=== PATIENT | female | born 1955 | race Caucasian/White ===

== ENCOUNTER 2018-08-15 09:15 | Inpatient (IN) | payer SELFPAY ==
[2018-08-15] VITALS (15 sets, daily range): BP systolic 129–182; BP diastolic 60–127; PULSE 67–105; RESP 12–28; TEMP 36.4–36.9; O2SAT 83–94; BMI 42.9
--- NOTE | 2018-08-15 09:24 | DI.RAD.S_ITS ---
PROCEDURE: XR CHEST 2V INDICATIONS: SHORT OF BREATH TECHNIQUE: 2 views of the chest were acquired. COMPARISON: None. FINDINGS: Surgical changes and devices: None. Lungs and pleura: There is bilateral pulmonary vascular prominence with a basilar predominance compatible with pulmonary edema. No pleural effusions or pneumothorax. Mediastinum: Mediastinal contours are normal. Heart size is normal. Bones and chest wall: No suspicious bony abnormalities. Soft tissues appear unremarkable. IMPRESSION: 1. Pulmonary edema demonstrated which may be due to cardiogenic or noncardiogenic etiologies such as atypical infection. Dictated by: Ignacio Garvey M.D. on 08/15/2018 at 10:40 Approved by: Ignacio Garvey M.D. on 08/15/2018 at 10:41
[2018-08-15 09:43] LABS: Add Manual Diff / Slide Review NO; Basophils Absolute Auto 100 /uL (0-100); Basophils Percent Auto 0.7 % (0-2); Eosinophils Absolute Auto 200 /uL (0-450); Eosinophils Percent Auto 1.5 % (2-4); Hematocrit 46.6 % (36-46); Hemoglobin 15.3 g/dL (12.0-16.0); Lymphocytes Absolute Auto 1100 /uL (1100-4500); Lymphocytes Percent Auto 10.8 % (25-40); Mean Corpuscular HGB Conc 32.9 % (30-36); Mean Corpuscular Hemoglobin 28.9 PG (26-34); Mean Corpuscular Volume 87.7 fL (80-100); Monocytes Absolute Auto 1100 /uL (0-900); Monocytes Percent Auto 10.1 % (3-14); Neutrophils Absolute Auto 8000 /uL (1500-7000); Neutrophils Percent Auto 76.9 % (50-75); Platelet Count 434 X10^3/uL (150-400); Red Blood Cell Count 5.31 X10^6/uL (4.0-5.2); Red Cell Distribution Width 14.3 % (11.6-14.8); White Blood Cell Count 10.5 X10^3/uL (4.5-11.0)
[2018-08-15] MEDS: ALBUTEROL 2.5 MG/3 ML NEB (ADULT) INH (09:47)
[2018-08-15 09:57] LABS: BUN Creatinine Ratio 22.9 (6-22); Blood Urea Nitrogen 16 mg/dL (7-17); Calcium 8.6 mg/dL (8.4-10.2); Carbon Dioxide 31 mmol/L (22-32); Chloride 103 mmol/L (98-107); Creatine Kinase 119 U/L (30-135); Estimated Glomerular Filt Rate > 60.0 mL/min (>60); Glucose 103 mg/dL (80-110); HEMOLYSIS < 15 (0-50); Magnesium 2.2 mg/dL (1.6-2.3); Potassium 4.7 mmol/L (3.4-5.1); Sodium 141 mmol/L (137-145)
[2018-08-15 09:58] LABS: Lactate (Lactic Acid) 0.8 mmol/L (0.7-2.1)
--- NOTE | 2018-08-15 09:58 | ED_ITS ---
HPI - SOB/Dyspnea General Chief Complaint: Shortness of Breath/Dyspnea Stated Complaint: CONFUSION,FUZZY INSIDE Time Seen by Provider: 08/15/18 09:45 Source: patient and family Mode of arrival: wheelchair Limitations: no limitations History of Present Illness This is a 63-year-old female who comes to the emergency department with complaint of shortness of breath. Her states she has also had a little bit of confusion. They states she has had symptoms for at least 10 days. She came in today because she was continuing to feel short of breath. She has not been improving. Her states her confusion has improved. Patient has history of COPD she does not have any inhalers at home and has not been using any. She did use to use Spiriva daily but quit using it about 2 years ago. She does tape daily. Patient has not had any fevers, no chills. She has had cough which has been productive with clear sputum which she states has not changed. She states it is normally a wet cough. She denies any chest pain or pressure. She states that when we placed on oxygen here in the department she felt a lot better. She denies any nausea or vomiting no other GI or urinary symptoms. She is not on any other medications regularly. Her states that she Has not seen a primary care physician in at least a decade. She has had a hysterectomy in the past. She does not drink alcohol. Related Data Home Medications Medication Instructions Recorded Confirmed No Known Home Medications 08/15/18 08/15/18 Allergies Allergy/AdvReac Type Severity Reaction Status Date / Time No Known Drug Allergies Allergy Verified 08/15/18 09:21 Review of Systems Review of Systems ROS Unobtainable: All systems reviewed & are unremarkable except as noted in HPI and below Constitutional Reports body ache(s), Denies chills, Denies difficulty sleeping, Denies excessive sweating, Denies fever(s), Denies headache(s), Denies lethargy and Denies weakness Eyes Denies change in vision ENT Ears, Nose, Mouth, and Throat: Denies vertigo, Denies headache(s) and Denies other ( Facial droop) Cardiovascular Denies chest pain, Denies chest pain at rest, Denies syncope, Denies irregular heart rhythm, Denies leg edema, Denies lightheadedness, Denies radiating jaw, neck or arm pain, Denies palpitations, Reports dyspnea, Reports dyspnea on exertion and Denies orthopnea Respiratory Denies change in phlegm color, Reports cough ( chronic), Denies pain on inspiration, Denies pain with cough, Reports dyspnea and Reports dyspnea on exertion Gastrointestinal Gastrointestinal: Denies abdominal pain, Denies melena, Denies hematochezia, Denies change in bowel habits, Denies diarrhea, Denies nausea and Denies vomiting Genitourinary Denies hematuria, Denies urinary frequency, Denies dysuria, Denies flank pain and Denies urinary urgency Musculoskeletal Denies muscle weakness and Denies numbness Neurologic Reports confusion, Denies vertigo, Denies syncope, Denies headache(s), Denies focal weakness, Denies numbness, Denies sensory deficit and Denies weakness Psychiatric Reports confusion Endocrine Denies excessive sweating and Denies palpitations PFSH Medical History COPD (chronic obstructive pulmonary disease) (Acute) H/O: hysterectomy (Acute) Social History household members: spouse Smoking Status: Former smoker alcohol intake: current Social History household members: spouse Smoking Status: Former smoker alcohol intake: current Exam Narrative Exam Narrative: GENERAL: Alert and oriented x three, obese, well-appearing female in moderate distress. HEENT: Head normocephalic, atraumatic, EOMI, pupils reactive, face symmetric, moist mucous membranes NECK: Supple, full range of motion CARDIOVASCULAR: Regular rate and rhythm without murmurs, rubs or gallops. RESPIRATORY: Breath decreased but audible bilaterally, mild wheezes in the left base greater than the right, no crackles rales or rhonchi. Positive for t achypnea. Able to speak in full sentences. ABDOMEN: Soft, nontender. Normoactive bowel sounds all 4 quadrants. No guarding or rebound, rigidity, no mass : No CVA tenderness EXTREMITIES: Normal range of motion, no clubbing. Trace edema. Neurovascularly intact NEUROLOGICAL: Cranial nerves II through XII grossly intact. Moving all extremities SKIN: Warm, dry, no petechiae, no rashes or lesions. Initial Vital Signs Initial Vital Signs: Vital Signs Temperature 97.6 F 08/15/18 09:21 Pulse Rate 90 08/15/18 09:21 Respiratory Rate 28 H 08/15/18 09:21 Blood Pressure 182/127 H 08/15/18 09:21 Pulse Oximetry 83 L 08/15/18 09:21 Course Orders Ordered: ED Orders 08/15/18 11:45 Respiratory Panel (Film Array) Stat 08/15/18 12:10 Sputum Culture Stat Albuterol/Ipratropium (Duoneb) 3 ml INH RTQ4HR PRN PRN Reason: Shortness Of Breath Sodium Chloride (Normal Saline 0.9%) 1,000 mls @ 125 mls/hr IV CONT MARY Last Admin: 08/15/18 12:05 Dose: 125 mls/hr Discontinued Medications Albuterol (Ventolin) 2.5 mg INH NOW ONE Stop: 08/15/18 09:46 Last Admin: 08/15/18 09:47 Dose: 2.5 mg Albuterol/Ipratropium (Duoneb) 3 ml INH NOW ONE Stop: 08/15/18 11:34 Last Admin: 08/15/18 13:23 Dose: 3 ml Azithromycin 500 mg/ Dextrose 250 mls @ 250 mls/hr IV NOW ONE Stop: 08/15/18 11:46 Last Infusion: 08/15/18 13:27 Dose: 0 mls/hr Admin: 08/15/18 12:05 Dose: 250 mls/hr Influenza Virus Vaccine (Flu Vaccine) 0.5 ml IM .ONCE ONE Stop: 08/15/18 15:13 Last Admin: 08/15/18 18:47 Dose: Not Given Methylprednisolone (Solu-Medrol 125 Mg Vial) 125 mg IV NOW ONE Stop: 08/15/18 10:06 Last Admin: 08/15/18 10:11 Dose: 125 mg Vital Signs - 8 hr 08/15/18 12:30 08/15/18 13:00 08/15/18 13:23 Temperature Pulse Rate 86 105 H 96 H Respiratory Rate 12 Blood Pressure Blood Pressure [Right Arm] 154/72 H 132/62 Pulse Oximetry 91 93 08/15/18 13:32 08/15/18 14:37 08/15/18 14:45 Temperature 97.8 F Pulse Rate 94 H 92 H 100 H Respiratory Rate 25 H 22 20 Blood Pressure 174/93 H Blood Pressure [Right Arm] 136/62 140/60 Pulse Oximetry 91 90 L 93 08/15/18 15:31 Temperature Pulse Rate Respiratory Rate Blood Pressure Blood Pressure [Right Arm] Pulse Oximetry 94 MDM - SOB/Dyspnea Lab Data Attestation: I reviewed the patient's lab results. Result diagrams: 08/15/18 09:30 08/15/18 09:30 Lab Results 08/15/18 08/15/18 08/15/18 Range/Units 09:30 09:30 09:30 WBC 10.5 (4.5-11.0) X10^3/uL RBC 5.31 H (4.0-5.2) X10^6/uL Hgb 15.3 (12.0-16.0) g/dL Hct 46.6 H (36-46) % MCV 87.7 (80-100) fL MCH 28.9 (26-34) PG MCHC 32.9 (30-36) % RDW 14.3 (11.6-14.8) % Plt Count 434 H (150-400) X10^3/uL Neut % (Auto) 76.9 H (50-75) % Lymph % (Auto) 10.8 L (25-40) % [place] % (Auto) 10.1 (3-14) % Eos % (Auto) 1.5 L (2-4) % Baso % (Auto) 0.7 (0-2) % Neut # (Auto) 8000 H (7491-8767) /uL Lymph # (Auto) 1100 (6788-9637) /uL [place] # (Auto) 1100 H (0-900) /uL Eos # (Auto) 200 (0-450) /uL Baso # (Auto) 100 (0-100) /uL Sodium 141 (137-145) mmol/L Potassium 4.7 (3.4-5.1) mmol/L Chloride 103 (98-107) mmol/L Carbon Dioxide 31 (22-32) mmol/L BUN 16 (7-17) mg/dL Creatinine 0.70 (0.52-1.04) mg/dL Estimated GFR > 60.0 (>60) mL/min BUN/Creatinine Ratio 22.9 H (6-22) Glucose 103 (80-110) mg/dL Lactate (0.7-2.1) mmol/L Calcium 8.6 (8.4-10.2) mg/dL Magnesium 2.2 (1.6-2.3) mg/dL Total Creatine Kinase 119 (30-135) U/L CK-MB (CK-2) 1.90 (<2.37) ng/mL CK-MB (CK-2) Rel Index 1.6 (1.5-5.0) % Troponin I 0.019 (0.01-0.034) ng/mL B-Natriuretic Peptide < 100 (<100) Procalcitonin < 0.05 (<0.5) ng/mL Influenza A & B (PCR) (Negative) 08/15/18 08/15/18 Range/Units 09:30 10:10 WBC (4.5-11.0) X10^3/uL RBC (4.0-5.2) X10^6/uL Hgb (12.0-16.0) g/dL Hct (36-46) % MCV (80-100) fL MCH (26-34) PG MCHC (30-36) % RDW (11.6-14.8) % Plt Count (150-400) X10^3/uL Neut % (Auto) (50-75) % Lymph % (Auto) (25-40) % [place] % (Auto) (3-14) % Eos % (Auto) (2-4) % Baso % (Auto) (0-2) % Neut # (Auto) (0429-4562) /uL Lymph # (Auto) (6210-3095) /uL [place] # (Auto) (0-900) /uL Eos # (Auto) (0-450) /uL Baso # (Auto) (0-100) /uL Sodium (137-145) mmol/L Potassium (3.4-5.1) mmol/L Chloride (98-107) mmol/L Carbon Dioxide (22-32) mmol/L BUN (7-17) mg/dL Creatinine (0.52-1.04) mg/dL Estimated GFR (>60) mL/min BUN/Creatinine Ratio (6-22) Glucose (80-110) mg/dL Lactate 0.8 (0.7-2.1) mmol/L Calcium (8.4-10.2) mg/dL Magnesium (1.6-2.3) mg/dL Total Creatine Kinase (30-135) U/L CK-MB (CK-2) (<2.37) ng/mL CK-MB (CK-2) Rel Index (1.5-5.0) % Troponin I (0.01-0.034) ng/mL B-Natriuretic Peptide (<100) Procalcitonin (<0.5) ng/mL Influenza A & B (PCR) Negative (Negative) Point of Care Testing Glucose POC 237 Imaging Data Chest x-ray: Radiologist's impression: [address] [address] XRay Report Signed Patient: Miryam Masters JMR#: [id number] : [id number]:[id number] Age/Sex: 63 / FDate of Service: 08/15/18 Loc: ED Accession Number: [id number] Procedure: XR chest 2V Ordering Provider: Flores Reeder D.O. PROCEDURE: XR CHEST 2V INDICATIONS: SHORT OF BREATH TECHNIQUE: 2 views of the chest were acquired. COMPARISON: None. FINDINGS: Surgical changes and devices: None. Lungs and pleura: There is bilateral pulmonary vascular prominence with a basilar predominance compatible with pulmonary edema. No pleural effusions or pneumothorax. Mediastinum: Mediastinal contours are normal. Heart size is normal. Bones and chest wall: No suspicious bony abnormalities. Soft tissues appear unremarkable. IMPRESSION: 1. Pulmonary edema demonstrated which may be due to cardiogenic or noncardio genic etiologies such as atypical infection. Dictated by: Ignacio Garvey M.D. on 08/15/2018 at 10:40 Approved by: Ignacio Garvey M.D. on 08/15/2018 at 10:41 CTA chest: Radiologist's impression: [address] Reeder, DO [facility] Patient Imaging Miryam Masters 63 F 1955 ACTIVITY DATE EXAM STATUS AUTHOR 08/15/18 10:51 Signed Areli Osman 08/15/18 09:24 Signed Ignacio Garvey [address] [address] [address] Scan Report Signed Patient: Miryam Masters JMR#: [id number] : 6Acct:[id number] Age/Sex: 63 / FDate of Service: 08/15/18 Loc: ED Accession Number: [id number] Procedure: CT angio chest PE protocol Ordering Provider: Flores Reeder D.O. PROCEDURE: CT ANGIO CHEST PE PROTOCOL INDICATIONS: shortness of breath x 10 days, hx copd, sudden onsent, hypox TECHNIQUE: After the administration of intravenous contrast, 2 mm thick sections acquired from the pulmonary apices to the posterior costophrenic angles. 3-dimensional maximum intensity projection (MIP) coronal and sagittal reformats were then acquired through the thorax. For radiation dose reduction, the following was used: automated exposure control, adjustment of mA and/or kV according to patient size. COMPARISON: [facility], CR, XR CHEST 2V, 08/15/2018, 9:41. FINDINGS: Image quality: Excellent. Pulmonary arteries: Pulmonary arteries are normal in size, and demonstrate no intraluminal filling defects to suggest central pulmonary embolism. Lungs and pleura: There is an appearance of predominantly tree in bud nodularity within the lungs bilaterally. Most significant areas of prominence are noted within the anterior left upper lobe and right middle lobe. Mediastinum: Heart size is normal, without pericardial effusion. Bilateral hilar and mediastinal adenopathy is present with the largest hilar node identified on the left measuring 18 mm. The most prominent mediastinal lymph node is in the aorticopulmonary window measuring 14 mm. Thoracic aorta is normal in caliber and enhancement. Esophagus is normal in caliber, without hiatal hernia. Bones and chest wall: No suspicious bony lesions. Ribs and thoracic spine appear intact throughout. Thyroid gland is unremarkable. No axillary or supraclavicular adenopathy. Abdomen: Visualized upper abdominal solid organs appear normal in the early arterial phase of enhancement. IMPRESSION: 1. No pulmonary embolism. 2. Multiple areas of nodularity appearing tree in bud in appearance with more consolidative left in patchy areas as described above. Overall appearance is most suggestive of an infectious/inflammatory etiology. Atypical infection such as fungal and mycobacterial should be considered. Recommend interval followup to document resolution and exclude presence of underlying noninfectious/noninflammatory, potentially neoplastic mass. Dictated by: Areli Osman M.D. on 08/15/2018 at 11:12 Approved by: Areli Osman M.D. on 08/15/2018 at 11:15 ECG Data Attestation: I personally reviewed and interpreted this ECG as follows: Prior ECG tracings: not available for review Interpretation: Sinus rhythm with ventricular rate 83 OK interval of 146 year is 76 and QTC of 387. No ST elevation or depression appreciated. Nonspecific T- wave changes. No prior for comparison. MDM Narrative Medical decision making narrative: Patient arrives hypoxic, according to her and her she has been a little bit more confused lately. Patient likely is secondary to hypoxia. Point of care urine was evaluated. Patient's lab work does not show any major abnormalities. Suspect COPD she has a history was on Spiriva but stopped using about 2 years ago. Patient chest x-ray shows some possible pulmonary edema but no obvious cardiac reason versus infectious. Patient's BNP is normal, her troponin does not show any new changes and she is not having any chest pain or pressure. Because of her prolonged course of shortness of breath and hypoxia CT angio for PE protocol was ordered which does not show a Pulmonary embolism. It does include multiple areas of nodularity appearing tree-in-bud appearance with more consolidative left in patchy areas as described above. Suggesting infectious or inflammatory process or atypical infection such as fungal or mycobacterial possibly. The patient does vape regularly also. based on patient's requirement for oxygen plan for admission. Spoke with the Hospitalist Dr. Duran and she accepts for observation. Holding orders. She did request a respiratory panel for patient. Dose of Azithromycin IV as patient Potentially could have atypical infection. Sputum culture has already been and sent. We also discussed patient base since the early 1999s and this may also be part of the changes to her lung structure. Discharge Plan Departure Patient Disposition: Admitted as Observation Clinical Impression: COPD exacerbation Discharge Date/Time: 08/15/18 14:39 Interventions: ED Discharge Assessment Last Done: 08/15/18 14:39 Admit Date/Time: 08/15/18 11:58 Admit Provider: Harika Duran
[2018-08-15 10:08] LABS: B Type Natriuretic Peptide < 100 (<100); Troponin I 0.019 ng/mL (0.01-0.034)
[2018-08-15] MEDS: methylPREDNISolone 125 MG/2 ML VIAL IV (10:11)
[2018-08-15 10:12] LABS: CKMB % Relative Index 1.6 % (1.5-5.0)
[2018-08-15 10:19] LABS: Procalcitonin < 0.05 ng/mL (<0.5)
[2018-08-15 10:39] LABS: Influenza A and B by PCR Rapid Negative (Negative)
--- NOTE | 2018-08-15 10:51 | DI.CT.S_ITS ---
PROCEDURE: CT ANGIO CHEST PE PROTOCOL INDICATIONS: shortness of breath x 10 days, hx copd, sudden onsent, hypox TECHNIQUE: After the administration of intravenous contrast, 2 mm thick sections acquired from the pulmonary apices to the posterior costophrenic angles. 3-dimensional maximum intensity projection (MIP) coronal and sagittal reformats were then acquired through the thorax. For radiation dose reduction, the following was used: automated exposure control, adjustment of mA and/or kV according to patient size. COMPARISON: [facility], , XR CHEST 2V, 08/15/2018, 9:41. FINDINGS: Image quality: Excellent. Pulmonary arteries: Pulmonary arteries are normal in size, and demonstrate no intraluminal filling defects to suggest central pulmonary embolism. Lungs and pleura: There is an appearance of predominantly tree in bud nodularity within the lungs bilaterally. Most significant areas of prominence are noted within the anterior left upper lobe and right middle lobe. Mediastinum: Heart size is normal, without pericardial effusion. Bilateral hilar and mediastinal adenopathy is present with the largest hilar node identified on the left measuring 18 mm. The most prominent mediastinal lymph node is in the aorticopulmonary window measuring 14 mm. Thoracic aorta is normal in caliber and enhancement. Esophagus is normal in caliber, without hiatal hernia. Bones and chest wall: No suspicious bony lesions. Ribs and thoracic spine appear intact throughout. Thyroid gland is unremarkable. No axillary or supraclavicular adenopathy. Abdomen: Visualized upper abdominal solid organs appear normal in the early arterial phase of enhancement. IMPRESSION: 1. No pulmonary embolism. 2. Multiple areas of nodularity appearing tree in bud in appearance with more consolidative left in patchy areas as described above. Overall appearance is most suggestive of an infectious/inflammatory etiology. Atypical infection such as fungal and mycobacterial should be considered. Recommend interval followup to document resolution and exclude presence of underlying noninfectious/noninflammatory, potentially neoplastic mass. Dictated by: Areli Osman M.D. on 08/15/2018 at 11:12 Approved by: Areli Osman M.D. on 08/15/2018 at 11:15
[2018-08-15] MEDS: AZITHROMYCIN 500 MG in DEXTROSE 5% IN WATER 250 ML IV (12:05)
[2018-08-15] MEDS: SODIUM CHLORIDE 0.9% 1,000 ML 125 ML IV (12:05)
--- NOTE | 2018-08-15 12:23 | PC.NURSE ---
sputum sample sent.
[2018-08-15] MEDS: ALBUTEROL/IPRATROPIUM 3 ML AMPUL INH ×2 (13:23→23:44)
--- NOTE | 2018-08-15 14:20 | PC.NURSE ---
Day shift: Pt not on the AC unit at this time.
[2018-08-15] MEDS: PIPERACILLIN-TAZO 3.375 GM/50 ML FROZ.PIGGY IV (23:09)
[2018-08-15] MEDS: SODIUM CHLORIDE 0.9% FLUSH 10 ML IV (23:10)
[2018-08-16] VITALS (11 sets, daily range): BP systolic 128–152; BP diastolic 74–99; PULSE 73–99; RESP 16–20; TEMP 36.4–36.9; O2SAT 92–95
[2018-08-16 02:58] LABS: RBC Urine None Seen (0-5/HPF)
[2018-08-16 03:00] LABS: Bilirubin Urine UA NEGATIVE (NEGATIVE); Color Urine UA YELLOW; Glucose Urine UA NEGATIVE (Negative); Ketones Urine UA NEGATIVE (NEGATIVE); Leukocyte Esterase Urine UA NEGATIVE (NEGATIVE); Nitrite Urine UA POSITIVE (Negative); Occult Blood Urine UA NEGATIVE (Negative); Protein Urine UA NEGATIVE (Negative); Urobilinogen Urine UA 0.2 E.U./dL (0.2)
[2018-08-16 03:10] LABS: Appearance Urine UA Slightly Cloudy; Bacteria Urine Many (>30); Culture Indicated Urine Specimen Cultured; Squamous Epithelial Cell Urine 0-1 /HPF; Uric Acid Crystals Urine Occasional; WBC Urine 0-1/HPF (0-5/HPF)
[2018-08-16] MEDS: ALBUTEROL/IPRATROPIUM 3 ML AMPUL INH ×3 (03:50→17:05)
[2018-08-16 04:36] LABS: Adenovirus Not Detected (Not Detect); Coronavirus 229E Not Detected (Not Detect); Coronavirus HKU1 Not Detected (Not Detect); Coronavirus NL 63 Not Detected (Not Detect); Coronavirus OC43 Not Detected (Not Detect); Human Metapneumovirus Not Detected (Not Detect); Human Rhinovirus/Enterovirus Not Detected (Not Detect); Influenza A Not Detected (Not Detect); Influenza B Not Detected (Not Detect); Parainfluenza Virus 1 Not Detected (Not Detect); Parainfluenza Virus 2 Not Detected (Not Detect); Parainfluenza Virus 3 Not Detected (Not Detect); Parainfluenza Virus 4 Not Detected (Not Detect)
[2018-08-16 04:37] LABS: Bordetella pertussis Not Detected (Not Detect); Chlamydophila pneumoniae Not Detected (Not Detect); Mycoplasma pneumoniae Not Detected (Not Detect); Respiratory Syncytial Virus Not Detected (Not Detect)
[2018-08-16 06:14] LABS: Add Manual Diff / Slide Review NO; Basophils Absolute Auto 100 /uL (0-100); Basophils Percent Auto 0.7 % (0-2); Eosinophils Absolute Auto 0 /uL (0-450); Eosinophils Percent Auto 0.1 % (2-4); Hemoglobin 14.6 g/dL (12.0-16.0); Lymphocytes Absolute Auto 1000 /uL (1100-4500); Lymphocytes Percent Auto 10.4 % (25-40); Mean Corpuscular HGB Conc 33.2 % (30-36); Mean Corpuscular Hemoglobin 29.3 PG (26-34); Mean Corpuscular Volume 88.2 fL (80-100); Monocytes Absolute Auto 1000 /uL (0-900); Monocytes Percent Auto 10.1 % (3-14); Neutrophils Absolute Auto 7800 /uL (1500-7000); Neutrophils Percent Auto 78.7 % (50-75); Platelet Count 355 X10^3/uL (150-400); Red Blood Cell Count 4.98 X10^6/uL (4.0-5.2); Red Cell Distribution Width 14.4 % (11.6-14.8)
[2018-08-16] MEDS: PIPERACILLIN-TAZO 3.375 GM/50 ML FROZ.PIGGY IV (06:18)
[2018-08-16] MEDS: PANTOPRAZOLE 20 MG TABLET PO (06:18)
[2018-08-16 06:36] LABS: BUN Creatinine Ratio 21.4 (6-22); Blood Urea Nitrogen 15 mg/dL (7-17); Calcium 8.8 mg/dL (8.4-10.2); Carbon Dioxide 32 mmol/L (22-32); Chloride 99 mmol/L (98-107); Cholesterol 123 mg/dL (140-199); Estimated Glomerular Filt Rate > 60.0 mL/min (>60); Glucose 122 mg/dL (80-110); HDL Cholesterol 35 mg/dL (40-60); HEMOLYSIS 16 (0-50); LDL Cholesterol Calculated 60 mg/dL (<100); Magnesium 2.1 mg/dL (1.6-2.3); Potassium 4.9 mmol/L (3.4-5.1); Sodium 139 mmol/L (137-145); Triglycerides 140 mg/dL (35-150)
--- NOTE | 2018-08-16 06:45 | PC.NURSE ---
NOC NOTE: Patient coughing most of the shift. Duoneb treatments helpful. Patient wheezing. Patient unable to lay down or menon much of shift which she states is her normal. Patient pleasant and cooperative. Will continue to monitor.
[2018-08-16 06:46] LABS: Troponin I < 0.012 ng/mL (0.01-0.034)
[2018-08-16 07:01] LABS: Procalcitonin < 0.05 ng/mL (<0.5)
--- NOTE | 2018-08-16 07:19 | P.PN_ITS ---
Subjective Date Patient Seen: 08/16/18 Interval history: Miryam Masters is a 63-year-old female with a past medical history significant for former smoker (80 pack year history) now chronic vaping and untreated COPD who presented with progressive shortness of breath for 10 days. The patient is resting in bedside chair comfortably. She is on 4 L of supplemental oxygen via nasal cannula. She endorses chronic cough and bronchitis with copious sputum/mucus production. She denies headache, shortness of breath, chest pain, abdominal pain, nausea, vomiting, fever, chills, dysuria, diarrhea or constipation. She is voiding and eliminating without difficulty. She is up ambulating with assistance and has very little endurance and fatigues quickly. Exam Vital Signs (past 8 hours): - 08/16/18 03:51 08/16/18 05:24 Temperature 97.6 F Pulse Rate 77 Respiratory Rate 16 Blood Pressure 146/79 H Pulse Oximetry 94 94 Oxygen Delivery Method Nasal Cannula Oxygen Flow Rate 4 Narrative Exam Narrative: General: No acute distress, well-developed, well-nourished, appropriately interactive HEENT: Normocephalic, atraumatic. External ears without defect. Pupils equal, round, and reactive to light and accommodation. Anicteric sclerae, moist conjunctivae, and no lid lag. Oropharynx free of erythema and cobble stoning with moist mucosa. Neck: Supple with full range of motion. No jugular venous distension. No bruits. No lymphadenopathy or thyromegaly. Cardiovascular: Regular rate and rhythm without murmurs, rubs, or gallops appreciated Pulmonary: Clear to auscultation bilaterally without crackles, wheezes, or rhonchi. Normal respiratory effort with no use of accessory muscles. Abdomen: Bowel tones present. Soft, nontender, nondistended. No hepatosplenomegaly or masses appreciated. Extremities: No clubbing, cyanosis, or edema. Skin: Normal temperature, turgor, and texture; no rash, ulcers, or subcutaneous nodules appreciated. Neurological: Cranial nerves grossly intact. Normal muscle strength, tone, and bulk. Reflexes, coordination, and sensory function within normal limits. No known gait impairment. Psychiatric: Normal mood and affect. Alert and oriented to person, place, and time. Objective Labs Result Diagrams: 08/16/18 05:31 08/16/18 05:31 Labs: Laboratory Results - last 24 hr 08/15/18 08/15/18 08/15/18 09:30 09:30 09:30 WBC 10.5 RBC 5.31 H Hgb 15.3 Hct 46.6 H MCV 87.7 MCH 28.9 MCHC 32.9 RDW 14.3 Plt Count 434 H Neut % (Auto) 76.9 H Lymph % (Auto) 10.8 L [place] % (Auto) 10.1 Eos % (Auto) 1.5 L Baso % (Auto) 0.7 Neut # (Auto) 8000 H Lymph # (Auto) 1100 [place] # (Auto) 1100 H Eos # (Auto) 200 Baso # (Auto) 100 Sodium 141 Potassium 4.7 Chloride 103 Carbon Dioxide 31 BUN 16 Creatinine 0.70 Estimated GFR > 60.0 BUN/Creatinine Ratio 22.9 H Glucose 103 Lactate Calcium 8.6 Magnesium 2.2 Total Creatine Kinase 119 CK-MB (CK-2) 1.90 CK-MB (CK-2) Rel Index 1.6 Troponin I 0.019 B-Natriuretic Peptide < 100 Triglycerides Cholesterol LDL Cholesterol, Calc HDL Cholesterol Procalcitonin < 0.05 Urine Color Urine Appearance Urine pH Ur Specific [place] Urine Protein Urine Glucose (UA) Urine Ketones Urine Occult Blood Urine Nitrate Urine Bilirubin Urine Urobilinogen Ur Leukocyte Esterase Urine RBC Urine WBC Ur Squamous Epith Cells Uric Acid Crystals Urine Bacteria Ur Culture Indicated? Chlamy pneumoniae PCR Adenovirus (PCR) B.parapertussis DNA PCR Coronavirus OC43 (PCR) Coronavirus HKU1 (PCR) Coronavirus 229E (PCR) Coronavirus NL63 (PCR) Human Metapneumovir PCR Influenza Type A (PCR) Influenza Type B (PCR) Influenza A & B (PCR) M. pneumoniae (PCR) Parainfluenza 1 (PCR) Parainfluenza 2 (PCR) Parainfluenza 3 (PCR) Parainfluenza 4 (PCR) RSV (PCR) Entero/Rhino (PCR) 08/15/18 08/15/18 08/16/18 09:30 10:10 02:40 WBC RBC Hgb Hct MCV MCH MCHC RDW Plt Count Neut % (Auto) Lymph % (Auto) [place] % (Auto) Eos % (Auto) Baso % (Auto) Neut # (Auto) Lymph # (Auto) [place] # (Auto) Eos # (Auto) Baso # (Auto) Sodium Potassium Chloride Carbon Dioxide BUN Creatinine Estimated GFR BUN/Creatinine Ratio Glucose Lactate 0.8 Calcium Magnesium Total Creatine Kinase CK-MB (CK-2) CK-MB (CK-2) Rel Index Troponin I B-Natriuretic Peptide Triglycerides Cholesterol LDL Cholesterol, Calc HDL Cholesterol Procalcitonin Urine Color Yellow Urine Appearance Slightly cloudy Urine pH 5.0 Ur Specific [place] 1.020 Urine Protein Negative Urine Glucose (UA) Negative Urine Ketones Negative Urine Occult Blood Negative Urine Nitrate Positive H Urine Bilirubin Negative Urine Urobilinogen 0.2 Ur Leukocyte Esterase Negative Urine RBC None seen Urine WBC 0-1/hpf Ur Squamous Epith Cells 0-1 /hpf Uric Acid Crystals Occasional Urine Bacteria Many (>30) H Ur Culture Indicated? Specimen cultured Chlamy pneumoniae PCR Adenovirus (PCR) B.parapertussis DNA PCR Coronavirus OC43 (PCR) Coronavirus HKU1 (PCR) Coronavirus 229E (PCR) Coronavirus NL63 (PCR) Human Metapneumovir PCR Influenza Type A (PCR) Influenza Type B (PCR) Influenza A & B (PCR) Negative M. pneumoniae (PCR) Parainfluenza 1 (PCR) Parainfluenza 2 (PCR) Parainfluenza 3 (PCR) Parainfluenza 4 (PCR) RSV (PCR) Entero/Rhino (PCR) 08/16/18 08/16/18 08/16/18 03:00 05:31 05:31 WBC 10.0 RBC 4.98 Hgb 14.6 Hct 44.0 MCV 88.2 MCH 29.3 MCHC 33.2 RDW 14.4 Plt Count 355 Neut % (Auto) 78.7 H Lymph % (Auto) 10.4 L [place] % (Auto) 10.1 Eos % (Auto) 0.1 L Baso % (Auto) 0.7 Neut # (Auto) 7800 H Lymph # (Auto) 1000 L [place] # (Auto) 1000 H Eos # (Auto) 0 Baso # (Auto) 100 Sodium Potassium Chloride Carbon Dioxide BUN Creatinine Estimated GFR BUN/Creatinine Ratio Glucose Lactate Calcium Magnesium Total Creatine Kinase CK-MB (CK-2) CK-MB (CK-2) Rel Index Troponin I < 0.012 B-Natriuretic Peptide Triglycerides Cholesterol LDL Cholesterol, Calc HDL Cholesterol Procalcitonin Urine Color Urine Appearance Urine pH Ur Specific [place] Urine Protein Urine Glucose (UA) Urine Ketones Urine Occult Blood Urine Nitrate Urine Bilirubin Urine Urobilinogen Ur Leukocyte Esterase Urine RBC Urine WBC Ur Squamous Epith Cells Uric Acid Crystals Urine Bacteria Ur Culture Indicated? Chlamy pneumoniae PCR Not detected Adenovirus (PCR) Not detected B.parapertussis DNA PCR Not detected Coronavirus OC43 (PCR) Not detected Coronavirus HKU1 (PCR) Not detected Coronavirus 229E (PCR) Not detected Coronavirus NL63 (PCR) Not detected Human Metapneumovir PCR Not detected Influenza Type A (PCR) Not detected Influenza Type B (PCR) Not detected Influenza A & B (PCR) M. pneumoniae (PCR) Not detected Parainfluenza 1 (PCR) Not detected Parainfluenza 2 (PCR) Not detected Parainfluenza 3 (PCR) Not detected Parainfluenza 4 (PCR) Not detected RSV (PCR) Not detected Entero/Rhino (PCR) Not detected 08/16/18 08/16/18 05:31 05:31 WBC RBC Hgb Hct MCV MCH MCHC RDW Plt Count Neut % (Auto) Lymph % (Auto) [place] % (Auto) Eos % (Auto) Baso % (Auto) Neut # (Auto) Lymph # (Auto) [place] # (Auto) Eos # (Auto) Baso # (Auto) Sodium 139 Potassium 4.9 Chloride 99 Carbon Dioxide 32 BUN 15 Creatinine 0.70 Estimated GFR > 60.0 BUN/Creatinine Ratio 21.4 Glucose 122 H Lactate Calcium 8.8 Magnesium 2.1 Total Creatine Kinase CK-MB (CK-2) CK-MB (CK-2) Rel Index Troponin I B-Natriuretic Peptide Triglycerides 140 Cholesterol 123 L LDL Cholesterol, Calc 60 HDL Cholesterol 35 L Procalcitonin < 0.05 Urine Color Urine Appearance Urine pH Ur Specific [place] Urine Protein Urine Glucose (UA) Urine Ketones Urine Occult Blood Urine Nitrate Urine Bilirubin Urine Urobilinogen Ur Leukocyte Esterase Urine RBC Urine WBC Ur Squamous Epith Cells Uric Acid Crystals Urine Bacteria Ur Culture Indicated? Chlamy pneumoniae PCR Adenovirus (PCR) B.parapertussis DNA PCR Coronavirus OC43 (PCR) Coronavirus HKU1 (PCR) Coronavirus 229E (PCR) Coronavirus NL63 (PCR) Human Metapneumovir PCR Influenza Type A (PCR) Influenza Type B (PCR) Influenza A & B (PCR) M. pneumoniae (PCR) Parainfluenza 1 (PCR) Parainfluenza 2 (PCR) Parainfluenza 3 (PCR) Parainfluenza 4 (PCR) RSV (PCR) Entero/Rhino (PCR) Assessment & Plan Assessment & Plan narrative: Miryam Masters is a 63-year-old female with a past medical history significant for former smoker (80 pack year history) now chronic vaping and untreated COPD who presented with progressive shortness of breath for 10 days. 1. Acute COPD exacerbation, with possible atypical pneumonia, present on a dmission. Active. -Patient presented with progressive shortness of breath x 10 days. She has a history of chronic vaping and COPD which has been untreated. -CTA did not demonstrate any PE or focal infiltrate. Tree and bud appearance within the lungs bilaterally which is nonspecific and consistent with COPD versus atypical pneumonia. -Ordered azithromycin 500 mg x 3 days for anti-inflammatory effects and atypical coverage and prednisone 40 mg x 5 days. Patient received methylprednisolone 125 mg x1 in ED. If patient continues to be hyperglycemic will cover with correctional scale insulin. Patient has been told she is prediabetic in the past therefore hemoglobin A1c has been ordered and pending. -Respiratory viral PCR negative. Blood cultures x2 have no growth to date. -Consulted respiratory therapy for evaluation and treatment. Ordered DuoNebs every 4 hr while awake and albuterol nebs every 2 hr as needed. Continue supplemental oxygen as needed and titrate off as tolerated. Oxygen saturation goal between 88- 92%. 2. Chronic vaping, present on admission. Stable. -Discussed vaping cessation and risk of bronchiolitis obliterans and premature emphysema. -Recommended cessation. 3. Morbid obesity, present on admission. Stable. -BMI 43. -Discussed lifestyle modification including: diet and exercise. Disposition: Patient does not have a PCP or insurance, therefore, [employer] has been consulted. Patient will likely discharge in 1-2 days depending upon improvement in COPD exacerbation and atypical pneumonia. Quality VTE Deep Vein Thrombosis/Pulmonary Embolism Present on Admission: No
--- NOTE | 2018-08-16 09:36 | P.HP_ITS ---
History of Present Illness Date Patient Seen: 08/15/18 Time Patient Seen: 23:10 Chief complaint: CONFUSION,FUZZY INSIDE Narrative: This is a 63-year-old female patient with history COPD with emphysema and bronchitis not currently being treated who presents with increasing dyspnea over 10 days. Patient was initially diagnosed with bronchitis and emphysema in 2008 and had previously been on inhalers however she could not afford the medication. She has been on and off Spiriva. She has had worsening productive cough with clear sputum reports having normal wet cough but has had increasing exertional dyspnea and shortness of breath to the point on arrival in the ER she was sent rating at 83% on room air. Patient states she is not had any fevers or chills and denies chest pain has some nausea vomiting diarrhea or constipation. She has had nasal congestion or sore throat. She reports significant relief with oxygen therapy. Imaging indicates cardiogenic versus noncardiogenic/aty pical infusions tree in bud appearance. CT is negative for embolism and describes left patchy infiltrate. Sputum cultures been obtained in the emergency department. Patient History Medical History Chronic bronchitis (Acute) Emphysema lung (Acute) COPD (chronic obstructive pulmonary disease) (Acute) H/O: hysterectomy (Acute) Surgical History History of appendectomy (Acute) Social History household members: spouse Smoking Status: Former smoker alcohol intake: current Family & Social History Social History: household members spouse Prior Living Arrangements House Safety & Behavioral: Feels Safe in Current Yes Environment Been Physically Hurt or No Threatened By a Person Suicidal Ideation Description None Suicide Plan Description No Plan Tobacco & Substance use: Smoking Status Former smoker Smoking packs per day 2.5 alcohol intake current alcohol intake frequency holiday/special occasion Substance Use Type does not use Comment: The patient lives in a single family home with her of 42 years. Her father from blood clots and her mother from strokes and cardiovascular disease. She has 2 brothers 1 from cancer and possibly aids. She has 1 sister in good health. She has a daughter who is in good health and a son who of an overdose. Smoking patient was a 2 [id number] smoker since age 13 and quit in 2008. Alcohol: Rare wine on holidays Substance use patient is currently vaping daily instead of smoking. Advanced directives: patient wishes to be a full code and designates her to be surrogate decision maker. Meds Home Medications Medication Instructions Recorded Confirmed Type No Known Home Medications 08/15/18 08/15/18 History Allergies Allergy/AdvReac Type Severity Reaction Status Date / Time No Known Drug Allergies Allergy Verified 08/15/18 09:21 Review of Systems Review of Systems All systems reviewed & are unremarkable except as noted in HPI and below Exam Vital Signs (past 8 hours): - 08/16/18 03:51 08/16/18 05:24 Temperature 97.6 F Pulse Rate 77 Respiratory Rate 16 Blood Pressure 146/79 H Pulse Oximetry 94 94 Oxygen Delivery Method Nasal Cannula Oxygen Flow Rate 4 Narrative Exam Narrative: General: Well developed, obese female with BMI of 43.4, patient is talking full sentences in no acute distress sitting up on the edge of the bed. Skin: Warm, dry, pink, no rashes, no visible lesions HEENT: Normocephalic, PERRLA, conjunctiva clear, no sinus tenderness to percussion, posterior pharynx pink without lesions or exudate, no lymphadenopathy Neck: Supple, no masses, no thyromegaly, no carotid bruits or JVD Cardiac: Regular rate and rhythm, S1-S2, no murmur, no gallops or rubs, 2+ radial pulse, 1+ posterior tibial pulse, no edema Chest: Symmetrical movement, breathing non labored, no cough present, BS with bilateral wheezing without coarseness or crackles diminished left base Abdomen: Soft, round, exam limited by body habitus no tenderness or guarding, no masses, BS normal. Back: Normal curvature, no tenderness to palpation, no CVA tenderness on percussion Extremities: Full ROM, no synovial effusions or deformities, stable gait Neuro: AAOx4, no localizing neurological findings, cranial nerves 2-12 grossly intact, no paresthesias Psych: pleasant, thought coherent, stable mood and congruent affect Objective Labs Result Diagrams: 08/16/18 05:31 08/16/18 05:31 Labs: Laboratory Results - last 24 hr 08/15/18 08/15/18 08/15/18 09:30 09:30 09:30 WBC 10.5 RBC 5.31 H Hgb 15.3 Hct 46.6 H MCV 87.7 MCH 28.9 MCHC 32.9 RDW 14.3 Plt Count 434 H Neut % (Auto) 76.9 H Lymph % (Auto) 10.8 L [place] % (Auto) 10.1 Eos % (Auto) 1.5 L Baso % (Auto) 0.7 Neut # (Auto) 8000 H Lymph # (Auto) 1100 [place] # (Auto) 1100 H Eos # (Auto) 200 Baso # (Auto) 100 Sodium 141 Potassium 4.7 Chloride 103 Carbon Dioxide 31 BUN 16 Creatinine 0.70 Estimated GFR > 60.0 BUN/Creatinine Ratio 22.9 H Glucose 103 Lactate Calcium 8.6 Magnesium 2.2 Total Creatine Kinase 119 CK-MB (CK-2) 1.90 CK-MB (CK-2) Rel Index 1.6 Troponin I 0.019 B-Natriuretic Peptide < 100 Triglycerides Cholesterol LDL Cholesterol, Calc HDL Cholesterol Procalcitonin < 0.05 Urine Color Urine Appearance Urine pH Ur Specific [place] Urine Protein Urine Glucose (UA) Urine Ketones Urine Occult Blood Urine Nitrate Urine Bilirubin Urine Urobilinogen Ur Leukocyte Esterase Urine RBC Urine WBC Ur Squamous Epith Cells Uric Acid Crystals Urine Bacteria Ur Culture Indicated? Chlamy pneumoniae PCR Adenovirus (PCR) B.parapertussis DNA PCR Coronavirus OC43 (PCR) Coronavirus HKU1 (PCR) Coronavirus 229E (PCR) Coronavirus NL63 (PCR) Human Metapneumovir PCR Influenza Type A (PCR) Influenza Type B (PCR) Influenza A & B (PCR) M. pneumoniae (PCR) Parainfluenza 1 (PCR) Parainfluenza 2 (PCR) Parainfluenza 3 (PCR) Parainfluenza 4 (PCR) RSV (PCR) Entero/Rhino (PCR) 08/15/18 08/15/18 08/16/18 09:30 10:10 02:40 WBC RBC Hgb Hct MCV MCH MCHC RDW Plt Count Neut % (Auto) Lymph % (Auto) [place] % (Auto) Eos % (Auto) Baso % (Auto) Neut # (Auto) Lymph # (Auto) [place] # (Auto) Eos # (Auto) Baso # (Auto) Sodium Potassium Chloride Carbon Dioxide BUN Creatinine Estimated GFR BUN/Creatinine Ratio Glucose Lactate 0.8 Calcium Magnesium Total Creatine Kinase CK-MB (CK-2) CK-MB (CK-2) Rel Index Troponin I B-Natriuretic Peptide Triglycerides Cholesterol LDL Cholesterol, Calc HDL Cholesterol Procalcitonin Urine Color Yellow Urine Appearance Slightly cloudy Urine pH 5.0 Ur Specific [place] 1.020 Urine Protein Negative Urine Glucose (UA) Negative Urine Ketones Negative Urine Occult Blood Negative Urine Nitrate Positive H Urine Bilirubin Negative Urine Urobilinogen 0.2 Ur Leukocyte Esterase Negative Urine RBC None seen Urine WBC 0-1/hpf Ur Squamous Epith Cells 0-1 /hpf Uric Acid Crystals Occasional Urine Bacteria Many (>30) H Ur Culture Indicated? Specimen cultured Chlamy pneumoniae PCR Adenovirus (PCR) B.parapertussis DNA PCR Coronavirus OC43 (PCR) Coronavirus HKU1 (PCR) Coronavirus 229E (PCR) Coronavirus NL63 (PCR) Human Metapneumovir PCR Influenza Type A (PCR) Influenza Type B (PCR) Influenza A & B (PCR) Negative M. pneumoniae (PCR) Parainfluenza 1 (PCR) Parainfluenza 2 (PCR) Parainfluenza 3 (PCR) Parainfluenza 4 (PCR) RSV (PCR) Entero/Rhino (PCR) 08/16/18 08/16/18 08/16/18 03:00 05:31 05:31 WBC 10.0 RBC 4.98 Hgb 14.6 Hct 44.0 MCV 88.2 MCH 29.3 MCHC 33.2 RDW 14.4 Plt Count 355 Neut % (Auto) 78.7 H Lymph % (Auto) 10.4 L [place] % (Auto) 10.1 Eos % (Auto) 0.1 L Baso % (Auto) 0.7 Neut # (Auto) 7800 H Lymph # (Auto) 1000 L [place] # (Auto) 1000 H Eos # (Auto) 0 Baso # (Auto) 100 Sodium Potassium Chloride Carbon Dioxide BUN Creatinine Estimated GFR BUN/Creatinine Ratio Glucose Lactate Calcium Magnesium Total Creatine Kinase CK-MB (CK-2) CK-MB (CK-2) Rel Index Troponin I < 0.012 B-Natriuretic Peptide Triglycerides Cholesterol LDL Cholesterol, Calc HDL Cholesterol Procalcitonin Urine Color Urine Appearance Urine pH Ur Specific [place] Urine Protein Urine Glucose (UA) Urine Ketones Urine Occult Blood Urine Nitrate Urine Bilirubin Urine Urobilinogen Ur Leukocyte Esterase Urine RBC Urine WBC Ur Squamous Epith Cells Uric Acid Crystals Urine Bacteria Ur Culture Indicated? Chlamy pneumoniae PCR Not detected Adenovirus (PCR) Not detected B.parapertussis DNA PCR Not detected Coronavirus OC43 (PCR) Not detected Coronavirus HKU1 (PCR) Not detected Coronavirus 229E (PCR) Not detected Coronavirus NL63 (PCR) Not detected Human Metapneumovir PCR Not detected Influenza Type A (PCR) Not detected Influenza Type B (PCR) Not detected Influenza A & B (PCR) M. pneumoniae (PCR) Not detected Parainfluenza 1 (PCR) Not detected Parainfluenza 2 (PCR) Not detected Parainfluenza 3 (PCR) Not detected Parainfluenza 4 (PCR) Not detected RSV (PCR) Not detected Entero/Rhino (PCR) Not detected 08/16/18 08/16/18 05:31 05:31 WBC RBC Hgb Hct MCV MCH MCHC RDW Plt Count Neut % (Auto) Lymph % (Auto) [place] % (Auto) Eos % (Auto) Baso % (Auto) Neut # (Auto) Lymph # (Auto) [place] # (Auto) Eos # (Auto) Baso # (Auto) Sodium 139 Potassium 4.9 Chloride 99 Carbon Dioxide 32 BUN 15 Creatinine 0.70 Estimated GFR > 60.0 BUN/Creatinine Ratio 21.4 Glucose 122 H Lactate Calcium 8.8 Magnesium 2.1 Total Creatine Kinase CK-MB (CK-2) CK-MB (CK-2) Rel Index Troponin I B-Natriuretic Peptide Triglycerides 140 Cholesterol 123 L LDL Cholesterol, Calc 60 HDL Cholesterol 35 L Procalcitonin < 0.05 Urine Color Urine Appearance Urine pH Ur Specific [place] Urine Protein Urine Glucose (UA) Urine Ketones Urine Occult Blood Urine Nitrate Urine Bilirubin Urine Urobilinogen Ur Leukocyte Esterase Urine RBC Urine WBC Ur Squamous Epith Cells Uric Acid Crystals Urine Bacteria Ur Culture Indicated? Chlamy pneumoniae PCR Adenovirus (PCR) B.parapertussis DNA PCR Coronavirus OC43 (PCR) Coronavirus HKU1 (PCR) Coronavirus 229E (PCR) Coronavirus NL63 (PCR) Human Metapneumovir PCR Influenza Type A (PCR) Influenza Type B (PCR) Influenza A & B (PCR) M. pneumoniae (PCR) Parainfluenza 1 (PCR) Parainfluenza 2 (PCR) Parainfluenza 3 (PCR) Parainfluenza 4 (PCR) RSV (PCR) Entero/Rhino (PCR) Assessment & Plan Assessment & Plan narrative: 1. Exacerbation of COPD, acute on chronic -patient with history of emphysema and bronchitis -previously treated with albuterol which the patient felt was ineffective. She had been prescribed Spiriva was effective but cost prohibitive -patient has not been on inhaler therapy for extended length of time -patient has responded to dounebs and methylprednisolone therapy both which will continued -patient was azithromycin related to inflammatory effects as well as treatment of infiltrates left lower lobe. 2. Vaping, chronic -discussed complications associated with vaping and related to patient's current lung disease -greater than 10 min were spent discussing smoking and vapping cessation The patient has been to the hospital and to the severity of her symptoms potential for complications. The patient spent is an outpatient with expected length stay less than 2 midnights. Quality VTE Deep Vein Thrombosis/Pulmonary Embolism Present on Admission: No
[2018-08-16] MEDS: ENOXAPARIN 40 MG/0.4 ML SYRINGE SUBCUT (10:23)
[2018-08-16] MEDS: predniSONE 20 MG TABLET 40 MG PO (10:23)
[2018-08-16] MEDS: AZITHROMYCIN 500 MG in DEXTROSE 5% IN WATER 250 ML IV (11:17)
--- NOTE | 2018-08-16 14:58 | PC.NURSE ---
day shift pt denies pain. Decreased O2 to 2LPM, on RA sats were upper to mid 80's. BS was elevated at lunch.
[2018-08-16] MEDS: SODIUM CHLORIDE 0.9% FLUSH 10 ML IV (20:18)
[2018-08-16 21:11] LABS: Hemoglobin A1C% w Est Avg Glu 5.6 % (4.0-6.0)
[2018-08-17] VITALS (17 sets, daily range): BP systolic 126–161; BP diastolic 61–99; PULSE 65–90; RESP 12–19; TEMP 36.4–37.1; O2SAT 84–95
[2018-08-17] MEDS: ALBUTEROL/IPRATROPIUM 3 ML AMPUL INH ×4 (04:08→20:45)
[2018-08-17] MEDS: PANTOPRAZOLE 20 MG TABLET PO (06:03)
--- NOTE | 2018-08-17 06:18 | PC.NURSE ---
Assumed care of pt at 2300 on 08/16/18. Pt sleeping during bedside hand-off. Awakens to voice. 2L NC sats 92-94%. Denies SOB at rest. Cough noted pt denies sputum. Tele in place. Denies chest pain or pressure. SBA to BSC. Calling appropriately for needs.
[2018-08-17 06:33] LABS: Add Manual Diff / Slide Review NO; Basophils Absolute Auto 0 /uL (0-100); Basophils Percent Auto 0.3 % (0-2); Eosinophils Absolute Auto 0 /uL (0-450); Eosinophils Percent Auto 0.4 % (2-4); Hematocrit 41.9 % (36-46); Hemoglobin 14.1 g/dL (12.0-16.0); Lymphocytes Absolute Auto 2000 /uL (1100-4500); Lymphocytes Percent Auto 22.3 % (25-40); Mean Corpuscular HGB Conc 33.8 % (30-36); Mean Corpuscular Hemoglobin 29.6 PG (26-34); Mean Corpuscular Volume 87.7 fL (80-100); Monocytes Absolute Auto 900 /uL (0-900); Monocytes Percent Auto 10.3 % (3-14); Neutrophils Absolute Auto 6000 /uL (1500-7000); Neutrophils Percent Auto 66.7 % (50-75); Platelet Count 397 X10^3/uL (150-400); Red Blood Cell Count 4.77 X10^6/uL (4.0-5.2); Red Cell Distribution Width 14.2 % (11.6-14.8); White Blood Cell Count 8.9 X10^3/uL (4.5-11.0)
[2018-08-17 07:05] LABS: Procalcitonin < 0.05 ng/mL (<0.5)
[2018-08-17] MEDS: ENOXAPARIN 40 MG/0.4 ML SYRINGE SUBCUT (09:29)
[2018-08-17] MEDS: SODIUM CHLORIDE 0.9% FLUSH 10 ML IV ×2 (09:30→20:30)
[2018-08-17] MEDS: predniSONE 20 MG TABLET 40 MG PO (09:30)
--- NOTE | 2018-08-17 10:51 | CM.DANOTE ---
DCP Assessment Per MD, pt still requiring oxygen and may trial room air today and may be stable for d/c home today or tomorrow. SW met bedside with pt and spouse and explained role and pt confirms that she lives at home in [place] with her and is Independent with ADL's at baseline. Pt does not have home oxygen at baseline and is surprised she is needing it here in the hospital. Pt and spouse do not anticipate any needs at discharge and spouse confirms that he is available to assist the pt at d/c if needed. Pt states she feels ready to d/c home today. Plan: SW to follow for likely pt d/c home with spouse when medically stable. SW to follow for any further identified discharge planning needs. STANISLAW Lindo
--- NOTE | 2018-08-17 14:00 | DIET.PN ---
Received request for consultation r/t morbid obesity. Met with patient and took dinner order; ordered a meal with lots of vegetable w/hummus. Discussed food choices and weight control. Admits a big problem is portion control more than what she eats. Has difficulty controlling hunger. Loves to cook Other obstacle to weight control include: not being able to cook and relying on spouse's cooking Limited physical activity r/t lung dz. when able to breathe better, rides stationary bike. Back pain - also limits physical activity DX: COPD Ht 66 Wt 264# BMI 43 Assessment: Pt guarded at first when bringing up weight control, but relaxed as conversation proceeded. Does have many obstacles to losing weight. Discussed how some of those obstacles may be worked around. Intervention: Provided education on wt loss strategies. Suggested modified, healthy keto diet may help with appetite control. Encouraged to take more control over meal prep and ways to increase activity, such as chair exercises. Discussed affect of carbs, especially refined carbs on breathing. Plan: Pt would like to start helping with prepping fresh vegs - is able to sit and to this. Also with some limited cooking, such as blending her own salad dressing. Hopes to return to using stationary bike again soon.
--- NOTE | 2018-08-17 15:32 | PC.NURSE ---
Pt down to 87% on RA when trialed off of oxygen. Pt back on 02 at 2L. BS with exp wheezes. She is a one person assist to get up. Resting comfortably..
--- NOTE | 2018-08-17 17:31 | P.PN_ITS ---
Subjective Date Patient Seen: 08/17/18 Interval history: 63-year-old female admitted to the hospital for respiratory failure secondary to COPD. The patient has a negative x-ray for pneumonia, negative procalcitonin, and negative CT angio. She has no evidence of pneumonia. The patient is still markedly hypoxic. She is requiring 3-4 L of oxygen. Room air saturation is 87%. Patient continues to feel somewhat winded and short of breath with minimal exertion. Exam Vital Signs (past 8 hours): - 08/17/18 10:58 08/17/18 11:13 08/17/18 12:00 Temperature 97.6 F Pulse Rate 89 86 Respiratory Rate 16 17 Blood Pressure 160/74 H Pulse Oximetry 94 84 L 92 08/17/18 15:36 08/17/18 15:40 08/17/18 17:00 Temperature 97.8 F Pulse Rate 65 78 Respiratory Rate 18 18 Blood Pressure 161/85 H Pulse Oximetry 94 95 93 08/17/18 17:06 Temperature Pulse Rate Respiratory Rate Blood Pressure Pulse Oximetry 92 Fraction of Inspired Oxygen 30 Oxygen Delivery Method Venturi Mask Oxygen Flow Rate 6 Narrative Exam Narrative: Ill appearing female who is short of breath with minimal exertion Lungs: Decreased breath sounds bilaterally with end-expiratory wheezing Cardiac exam: Regular rate and rhythm normal S1-S2 Abdomen: Soft nontender nondistended Extremities: No edema Objective Labs Result Diagrams: 08/17/18 05:56 08/16/18 05:31 Labs: Laboratory Results - last 24 hr 08/16/18 08/17/18 08/17/18 05:31 05:56 05:56 WBC 8.9 RBC 4.77 Hgb 14.1 Hct 41.9 MCV 87.7 MCH 29.6 MCHC 33.8 RDW 14.2 Plt Count 397 Neut % (Auto) 66.7 Lymph % (Auto) 22.3 L Glasscock % (Auto) 10.3 Eos % (Auto) 0.4 L Baso % (Auto) 0.3 Neut # (Auto) 6000 Lymph # (Auto) 2000 Glasscock # (Auto) 900 Eos # (Auto) 0 Baso # (Auto) 0 Hemoglobin A1c 5.6 Procalcitonin < 0.05 Assessment & Plan (1) Morbid obesity: Current visit: Yes Status: Acute (2) Acute and chronic respiratory failure with hypoxia: Problem details: Patient is continued on oxygen. Will continue her on steroids nebulizer treatment in add a steroid inhaler. If she is unable to maintain her oxygen saturation of greater than 88% on room air the patient will need to be discharged home on oxygen. Hopefully with continued treatment today her oxygenation will be improved. Her acute on chronic respiratory failure was present on admission. Current visit: Yes Status: Acute (3) COPD exacerbation: Problem details: COPD is improved. No evidence of bronchitis. Agree with 5 day course of antibiotics and then discontinue. Will continue nebulizers oxygen and steroid. Have added a steroid inhaler to her regimen. Anticipate discharge home in 1-2 days. Current visit: Yes Status: Acute Quality VTE Deep Vein Thrombosis/Pulmonary Embolism Present on Admission: No
[2018-08-17] MEDS: BUDESONIDE 120 PUFF/DEVICE INHALER INH (21:08)
[2018-08-18] VITALS (17 sets, daily range): BP systolic 132–152; BP diastolic 73–100; PULSE 75–106; RESP 12–21; TEMP 36.6–36.8; O2SAT 86–100
[2018-08-18] MEDS: ALBUTEROL/IPRATROPIUM 3 ML AMPUL INH ×3 (05:42→19:56)
[2018-08-18] MEDS: BUDESONIDE 120 PUFF/DEVICE INHALER INH ×2 (05:47→19:56)
[2018-08-18] MEDS: ENOXAPARIN 40 MG/0.4 ML SYRINGE SUBCUT (10:26)
[2018-08-18] MEDS: SODIUM CHLORIDE 0.9% FLUSH 10 ML IV ×2 (10:27→20:29)
[2018-08-18] MEDS: predniSONE 20 MG TABLET 40 MG PO (10:27)
--- NOTE | 2018-08-18 14:09 | PC.NURSE ---
PATIENT HAS EXERTIONAL DYSPNEA. NO SOB AT REST. LUNGS VERY TIGHT, DIMINISHED W/ POOR AERATION BUT NO WHEEZES. SAT THIS MORNING 86-91% ON 2.5L/NC. MD AND RT NOTIFIED. PRN ALBUTEROL TX'S. PATIENT A&O.
[2018-08-18] MEDS: ALBUTEROL 2.5 MG/3 ML NEB (ADULT) INH (16:41)
--- NOTE | 2018-08-18 18:27 | PM.PN.1 ---
Subjective Date Patient Seen: 08/18/18 Interval history: 63 y/o female admitted with acute respiratory failure. She continues to be hypoxic with O2 sat's dropping to 87% on room air. She continues to have a cough, she has wheezing as well Exam Vital Signs (past 8 hours): - 08/18/18 11:00 08/18/18 11:15 08/18/18 11:45 Temperature Pulse Rate 76 Respiratory Rate 12 Blood Pressure Pulse Oximetry 86 L 90 L 88 L 08/18/18 12:14 08/18/18 13:00 08/18/18 13:52 Temperature 98.2 F Pulse Rate 81 92 H Respiratory Rate 19 14 Blood Pressure 137/100 H Pulse Oximetry 91 91 92 08/18/18 15:38 Temperature 98.3 F Pulse Rate 94 H Respiratory Rate 20 Blood Pressure 152/94 H Pulse Oximetry 94 Fraction of Inspired Oxygen 30 Oxygen Delivery Method Nasal Cannula Oxygen Flow Rate 2 Narrative Exam Narrative: Ill appearing obese female short of breath Lungs: decreased breath sounds with end expiratory wheezing CV: RRR Nl Sl s2 Abd: soft/ non tender non distended Ext: no edema Objective Labs Result Diagrams: 08/17/18 05:56 08/16/18 05:31 Assessment & Plan (1) Acute respiratory failure with hypoxia: Problem details: Acute hypoxic respiratory failure, present on admission. Patient continues to require oxygen and will likely need oxygen at discharge. Current visit: Yes Status: Acute (2) Morbid obesity: Current visit: Yes Status: Acute (3) COPD exacerbation: Problem details: COPD is improved. No evidence of bronchitis. Agree with 5 day course of antibiotics and then discontinue. Will continue nebulizers oxygen and steroid. Have added a steroid inhaler to her regimen. Anticipate discharge home in 1-2 days. Current visit: Yes Status: Acute Quality VTE Deep Vein Thrombosis/Pulmonary Embolism Present on Admission: No
[2018-08-18] MEDS: DOXYCYCLINE HYCLATE 100 MG TABLET PO (20:29)
[2018-08-19] VITALS (12 sets, daily range): BP systolic 128–164; BP diastolic 74–112; PULSE 70–91; RESP 14–21; TEMP 36.2–36.7; O2SAT 81–96
--- NOTE | 2018-08-19 01:16 | PC.NURSE ---
2300- Pt admit for COPD exacerbation; treated w/ PO abx & steroids. Currently supported on 2 1/2 L O2 via NC w/ sats in low 90's. Pt denies any pain; moving SBA to bathroom, calling appropriately. 0200- Pt's IV line as of 08/19. Pt refuses new IV at this time, will reattempt.
[2018-08-19] MEDS: ALBUTEROL/IPRATROPIUM 3 ML AMPUL INH ×3 (05:56→20:23)
[2018-08-19] MEDS: BUDESONIDE 120 PUFF/DEVICE INHALER INH ×2 (05:56→20:23)
--- NOTE | 2018-08-19 06:30 | P.PN_ITS ---
Subjective Date Patient Seen: 08/19/18 Interval history: Miryam Masters is a 63-year-old female with a past medical history significant for former smoker (80 pack year history) now chronic vaping and untreated COPD who presented with progressive shortness of breath for 10 days. The patient is resting in bedside chair comfortably. She is on 2.5 L of supplemental oxygen via nasal cannula. She continues to have her chronic cough and bronchitis with copious sputum/mucus production that has improved as far as production. Her endorses snoring and it is likely she has sleep apnea. She denies dysuria but does have urinary symptoms including frequency and urgency that are ongoing making it hard to decipher whether she has true UTI or not. She denies headache, shortness of breath, chest pain, abdominal pain, nausea, vomiting, fever, chills, dysuria, diarrhea or constipation. She is voiding and eliminating without difficulty. She is up ambulating with assistance and has very little endurance and fatigues quickly. Exam Vital Signs (past 8 hours): - 08/18/18 23:45 08/19/18 04:54 08/19/18 05:56 Temperature 98.1 F 97.8 F Pulse Rate 75 85 70 Respiratory Rate 20 21 14 Blood Pressure 132/76 148/82 H Pulse Oximetry 94 92 92 Fraction of Inspired Oxygen 30 Oxygen Delivery Method Nasal Cannula Oxygen Flow Rate 2.5 Narrative Exam Narrative: General: Middle-aged female sitting in bedside chair and in no acute distress, appears older than stated age, well-developed, well-nourished, appropriately interactive. HEENT: Normocephalic, atraumatic. External ears without defect. Pupils equal, round, and reactive to light. Anicteric sclerae, moist conjunctivae, and no lid lag. Poor dentition. Neck: Supple with full range of motion.No lymphadenopathy or thyromegaly. Cardiovascular: Regular rate and rhythm without murmurs, rubs, or gallops appreciated. Pulmonary: Diminished air movement throughoutbut clear and without rhonchi, wheeze, or crackles. Normal respiratory effort with no use of accessory muscles. Abdomen: Soft, bowel sounds present, nontender, nondistended. No hepatosplenomegaly or masses appreciated. Extremities: No clubbing, cyanosis, or edema. Skin: Normal temperature, turgor, and texture; no rash, ulcers, or subcutaneous nodules appreciated. Neurological: Cranial nerves grossly intact. Psychiatric: Normal mood and affect. Alert and oriented to person, place, and time. Objective Labs Result Diagrams: 08/19/18 07:00 08/19/18 07:00 Assessment & Plan Assessment & Plan narrative: Miryam Masters is a 63-year-old female with a past medical history significant for former smoker (80 pack year history) now chronic vaping and untreated COPD who presented with progressive shortness of breath for 10 days. 1. Acute on chronic hypoxemic respiratory failure, present on admission. Active. -Patient presented with oxygen saturations in the low 80?s. -Patient continues to require oxygen and will likely need oxygen at discharge. -Consulted respiratory therapy for evaluation and treatment. Ordered CPAP to be started tonight. 2. Acute COPD exacerbation with atypical pneumonia, present on admission. Active. -Patient presented with progressive shortness of breath x 10 days. She has a history of chronic vaping and COPD which has been untreated. -CTA did not demonstrate any PE or focal infiltrate. Tree and bud appearance within the lungs bilaterally which is nonspecific and consistent with COPD versus atypical pneumonia. -Received azithromycin 500 mg x 2 doses for anti-inflammatory effects and atypical pneumonia coverage and now on doxycycline 100 mg twice daily which will be discontinued as patient has had plenty of treatment for atypical pneumonia. Continue ceftriaxone 2 g daily x 3 days for UTI as below. Continue prednisone 40 mg x 5 days. Patient received methylprednisolone 125 mg x1 in ED. -Ordered complete pneumonia workup including: Respiratory viral PCR negative. Strep pneumoniae and Legionella urine antigens negative. Sputum culture which was positive for Haemophilus influenzae. Blood cultures x2 have no growth to date. -Consulted respiratory therapy for evaluation and treatment. Ordered DuoNebs every 4 hr while awake and albuterol nebs every 2 hr as needed and budesonide. Continue supplemental oxygen as needed and titrate off as tolerated. Oxygen saturation goal between 88- 92% and will likely need oxygen at discharge as above. 3. Acute UTI, present on admission. Active. -She denies dysuria but does have urinary symptoms including frequency and urgency that are ongoing making it hard to decipher whether she has true UTI or not. -Urine culture grew Klebsiella pneumoniae and E coli both sensitive to ceftriaxone and started ceftriaxone 2 g daily x 3 days. 4. Chronic vaping and former smoker present on admission. Stable. -Former smoker with 80 pack year history. -Discussed vaping cessation and risk of bronchiolitis obliterans and premature emphysema. -Recommended cessation. 5. Morbid obesity, present on admission. Stable. -BMI 43. -Risk stratify: Fasting lipid panel demonstrated total cholesterol 123, trig lycerides 140, LDL 60, and HDL 35; and Hemoglobin A1c is normal at 5.6%. -Discussed lifestyle modification including: diet and exercise. Disposition: Patient does not have a PCP or insurance, therefore, INTERIOR ASSEMBLIES DEVELOPER [employer] has been consulted. Patient will likely discharge in 1-2 days depending upon arrangements for oxygen and safe discharge plan in place. Quality VTE Deep Vein Thrombosis/Pulmonary Embolism Present on Admission: No
[2018-08-19 07:08] LABS: Add Manual Diff / Slide Review NO; Basophils Absolute Auto 100 /uL (0-100); Eosinophils Absolute Auto 0 /uL (0-450); Eosinophils Percent Auto 0.5 % (2-4); Hematocrit 42.5 % (36-46); Hemoglobin 14.1 g/dL (12.0-16.0); Lymphocytes Absolute Auto 1900 /uL (1100-4500); Lymphocytes Percent Auto 22.5 % (25-40); Mean Corpuscular HGB Conc 33.2 % (30-36); Mean Corpuscular Hemoglobin 29.3 PG (26-34); Mean Corpuscular Volume 88.1 fL (80-100); Monocytes Absolute Auto 800 /uL (0-900); Neutrophils Absolute Auto 5700 /uL (1500-7000); Platelet Count 358 X10^3/uL (150-400); Red Blood Cell Count 4.82 X10^6/uL (4.0-5.2); Red Cell Distribution Width 14.4 % (11.6-14.8); White Blood Cell Count 8.6 X10^3/uL (4.5-11.0)
[2018-08-19 07:18] LABS: Alanine Aminotransferase 52 IU/L (9-52); Albumin 3.6 g/dL (3.5-5.0); Albumin Globulin Ratio 1.2 (1.0-2.8); Alkaline Phosphatase 42 U/L (38-126); Aspartate Aminotransferase 24 IU/L (14-36); BUN Creatinine Ratio 31.4 (6-22); Bilirubin Total 0.9 mg/dL (0.2-1.3); Blood Urea Nitrogen 22 mg/dL (7-17); Calcium 8.6 mg/dL (8.4-10.2); Carbon Dioxide 34 mmol/L (22-32); Chloride 100 mmol/L (98-107); Estimated Glomerular Filt Rate > 60.0 mL/min (>60); Globulin 2.9 g/dL (1.7-4.1); Glucose 96 mg/dL (80-110); HEMOLYSIS < 15 (0-50); Potassium 4.8 mmol/L (3.4-5.1); Sodium 141 mmol/L (137-145); Total Protein 6.5 g/dL (6.3-8.2)
[2018-08-19 08:01] LABS: Procalcitonin < 0.05 ng/mL (<0.5)
[2018-08-19] MEDS: DOXYCYCLINE HYCLATE 100 MG TABLET PO ×2 (09:25→22:00)
[2018-08-19] MEDS: ENOXAPARIN 40 MG/0.4 ML SYRINGE SUBCUT (09:25)
[2018-08-19] MEDS: SODIUM CHLORIDE 0.9% FLUSH 10 ML IV ×2 (09:26→22:00)
[2018-08-19] MEDS: predniSONE 20 MG TABLET 40 MG PO (09:26)
--- NOTE | 2018-08-19 14:45 | CM.DPNOTE ---
According to Dr Duran, pt will require ongoing and continuous Home O2. Pt is on 2.5L of supplemental O2 via nasal cannula here. She is able to ambulate indp. but does fatigue quickly. Dr Duran requests this HOP WORKER to research options for home O2 w/o insurance (?) Reviewed chart, to include Registration Imelda Notes. Pt has been approached by admission counselors multiple times, screened for [facility] and denied because family income is too high, approx $4,000. Admission counselors have instructed pt to return to to seek help on the medical insurance exchange. Met w/pt, spouse, and RT Dewey in pt's rm today. Pt sitting up in bed. Asked if family income remains the same? Yes. Asked if both pt and spouse are uninsured? Yes. Pt states she can see a doctor but has not been to anyone in 10 years. RT Dewey suggests a walk-in clinic in [place] that might be able to provide some f/u (private pay). Discussed paying privately, pt requests quote for home O2. Discussed ways to secure insurance and pt/spouse say they have looked at options and they can not afford to pay for insurance. Pt/spouse also admit they have huge medical bills that have required taking out a second mortgage on their home. Strongly encouraged pt/spouse to reconsider options through [employer]. Pt understands she needs ongoing and close outpt medical management. RT Dewey suggested disability application, pt said she could look into this. At this time, pt and spouse very pleasant but noncommittal re: topics discussed today. This HOP WORKER placed call to David almonte/Nadine Chavira# [phone] asking for quote for private payment Home O2, and if this was feasible to set up (?) Updated Dr Duran w/ summary of above. Pt will be scheduled for DC Tuesday. HOP WORKER team will continue attempt for Home O2. Hopefully, and at the least, pt can be secured a PCP appt upon DC, capable of accepting tucker payment. STANISLAW Kelly
[2018-08-19] MEDS: CEFTRIAXONE 2 GM/50 ML FROZ.PIGGY IV (17:17)
--- NOTE | 2018-08-19 18:21 | PC.NURSE ---
Shift note: Pt oriented x3, pleasant. Requesting shower, VALIDATION SOFTWARE FACILITATOR set up in BR, showered independently while sitting on commode. 2L O2 NC in nares during shower, she denied any increased SOB during activity, saying not any more than usual. 2L O2 sat at rest 94% IV antibiotic started per new order, at end of infusion patient reported pain at IV site. I assessed small hard lump proximal to IV insertion right inner forearm, also small amt of redness. Small purple bruise observed more proximal than lump/erythema, pt reported that one had been there. IV removed, RFA wrapped with warm blanket, after IV out pt reported some relief. Float RN in to restart IV.
[2018-08-20] VITALS (13 sets, daily range): BP systolic 107–140; BP diastolic 49–77; PULSE 60–90; RESP 10–20; TEMP 36.2–36.9; O2SAT 88–96
--- NOTE | 2018-08-20 00:51 | PC.NURSE ---
2300- Pt sleeping in bed; upon this clinical trial associate pt exhibits no SOB w/ rest. On 2L O2 via NC; sats in the low 90's. Lung sounds diminished and tight, barely audible at bases. Pt has dry cough; moving SBA to bathroom. New IV flushes well, saline locked. 0400- Turned pt down to 1L O2 to see how she tolerated. 0630- Tolerating 1L very well. Denies SOB, slight cough. Pt turned off O2 completely to monitor.
[2018-08-20] MEDS: BUDESONIDE 120 PUFF/DEVICE INHALER INH ×2 (07:48→20:58)
[2018-08-20] MEDS: ALBUTEROL/IPRATROPIUM 3 ML AMPUL INH ×3 (07:48→20:59)
[2018-08-20] MEDS: ENOXAPARIN 40 MG/0.4 ML SYRINGE SUBCUT (08:57)
[2018-08-20] MEDS: predniSONE 20 MG TABLET 40 MG PO (08:57)
[2018-08-20] MEDS: DOXYCYCLINE HYCLATE 100 MG TABLET PO ×2 (08:58→20:54)
--- NOTE | 2018-08-20 11:45 | RT ---
Addendum entered by Arlen Beaulieu, RT 08/20/18 11:52: PT. REQUIRES 1LPM AT REST TO KEEP SPO2 ABOVE 88% CONSISTENTLY. AT REST ON 1LPM, SPO2 IS 90-91%. Original Note: RESPIRATORY DISCHARGE PLAN REST AND EXERCISE OXIMETRY FOR DME QUALIFICATION 1130AM 08/20/2018 PERFORMED BY ARLEN BEAULIEU, DAIRY HELPER FOR KAL ELMORE, 63 FEMALE AT REST ON ROOM AIR, SPO2 FALLS TO 87% AFTER 12 MINS. HR 96B/MIN. WALKING ON ROOM AIR APPROX 50 FEET, SPO2 FALLS TO 82%. HR 110. RR 26-30B/MIN PLACED ON 2LPM NASAL OXYGEN AND SPO2 ALLOWED TO RETURN TO 90% WHILE STANDING, TAKING 3 MINS TO ACHIEVE. WALKING AT SLOW PACE WITH A WALKER , ON 2LPM FOR 250 FT. SPO2 MAINTAINED AT 90-92%, HR 124B/MIN AT PEAK, RR 28B/MIN. MILD TO MODERATE DYSPNEA. RECOVERY AT REST, SPO2 FAVIOLA TO 95% ON 2LPM WITHIN 2 MINS. HR FELL TO 90 B/MIN AT [address] RESULTS REPORTED TO DR. Nancy YIN RESULTS AND DISCHARGE SUMMARY WILL BE FAXED TO [facility]. PT. HOME ADDRESS AND HOME PHONE NUMBER VERIFIED ON FACESHEET. EXPLAINED PROCESS AND PURPOSE TO PT. SHE STATES UNDERSTANDING AND AGREES TO HAVE [facility] HER DME.
--- NOTE | 2018-08-20 15:10 | PC.NURSE ---
Pt ambulated in the halls on room air and dropped to 87%. Put back on oxygen and tolerating well. Pt is in room and visiting with her . pt is on 1l at this time.
--- NOTE | 2018-08-20 15:32 | CM.DPNOTE ---
According to David almonte/ Nadine P# [phone], these are the costs pt could expect if DC home w/ home O2 (private pay) Continuous O2: $135.64 mo for tanks, $ 115 mo for concentrator Reviewed above w/pt and she was very relieved. She and spouse can cover this cost. Continued to reiterate w/pt that she would benefit from getting an insurance plan. Also encouraged pt to call PCP providers in [place] to ask about tucker for service (?) LILIANA DIAZ Test Deskman Stacie looked up these contacts for PCP/ Tucker for Service 1. [facility] [phone] 2. [facility] [phone] 3. [facility] Dr Duran unsure whether she will DC pt home today. Pt does not have a PCP currently and this SENIOR PAYROLL SPECIALIST unsure whether she will have one available to her, even if the SENIOR PAYROLL SPECIALIST scheduled Tuesday called on pt's behalf (?) Following closely. Home O2 coordinated by RT today, pt will have Home O2 available w/in a few hours of DC if ordered. P: DC Tuesday or Tuesday, home w/family and likely Home O2 (paid privately, monthly) and referral to get PCP? Patti Yang SENIOR PAYROLL SPECIALIST
[2018-08-20] MEDS: CEFTRIAXONE 2 GM/50 ML FROZ.PIGGY IV (15:45)
--- NOTE | 2018-08-20 17:29 | P.PN_ITS ---
Subjective Date Patient Seen: 08/20/18 Interval history: Miryam Masters is a 63-year-old female with a past medical history significant for former smoker (80 pack year history) now chronic vaping and untreated COPD who presented with progressive shortness of breath for 10 days. The patient is resting in bedside chair comfortably. She is down to 1 L of supplemental oxygen via nasal cannula to keep sats 88% and above. She continues to desaturate without oxygen in place at rest and especially with ambulation down to low 80s. She continues to endorse productive cough that has improved in regard to sputum production significantly since admission. Plan to try CPAP tonight. She denies headache, shortness of breath, chest pain, abdominal pain, nausea, vomiting, fever, chills, dysuria, diarrhea or constipation. She is voiding and eliminating without difficulty. She is up ambulating with assistance and has very little endurance and fatigues quickly. Exam Vital Signs (past 8 hours): - 08/20/18 10:02 08/20/18 11:00 08/20/18 13:36 Temperature 98.0 F 98.4 F Pulse Rate 65 72 90 Respiratory Rate 20 20 10 L Blood Pressure 135/68 137/63 Pulse Oximetry 93 92 96 08/20/18 15:37 08/20/18 16:00 Temperature 98.5 F Pulse Rate 82 Respiratory Rate 20 Blood Pressure 130/71 Pulse Oximetry 94 93 Fraction of Inspired Oxygen 30 Oxygen Delivery Method Nasal Cannula Oxygen Flow Rate 1 Narrative Exam Narrative: General: Middle-aged female sitting in bed chair and in no acute distress, appears older than stated age, well-developed, well-nourished, appropriately interactive. HEENT: Normocephalic, atraumatic. External ears without defect. Pupils equal, round, and reactive to light. Anicteric sclerae, moist conjunctivae, and no lid lag. Poor dentition. Neck: Supple with full range of motion.No lymphadenopathy or thyromegaly. Cardiovascular: Regular rate and rhythm without murmurs, rubs, or gallops appreciated. Pulmonary: Diminished air movement throughout but clear occasional end- expiratory wheeze. No rhonchi or crackles. Normal respiratory effort with no use of accessory muscles. Abdomen: Soft, bowel sounds present, nontender, nondistended. No hepatosplenomegaly or masses appreciated. Extremities: No clubbing, cyanosis, or edema. Skin: Normal temperature, turgor, and texture; no rash, ulcers, or subcutaneous nodules appreciated. Neurological: Cranial nerves grossly intact. Psychiatric: Normal mood and affect. Alert and oriented to person, place, and time. Objective Labs Result Diagrams: 08/19/18 07:00 08/19/18 07:00 Assessment & Plan Assessment & Plan narrative: Miryam Masters is a 63-year-old female with a past medical history significant for former smoker (80 pack year history) now chronic vaping and untreated COPD who presented with progressive shortness of breath for 10 days. 1. Acute on chronic hypoxemic respiratory failure, present on admission. Active. -Patient presented with oxygen saturations in the low 80?s. -Patient continues to require oxygen and will need oxygen at discharge which is being arranged. -Consulted respiratory therapy for evaluation and treatment. Ordered CPAP to be started tonight. 2. Acute COPD exacerbation with atypical pneumonia, present on admission. Active. -Patient presented with progressive shortness of breath x 10 days. She has a history of chronic vaping and COPD which has been untreated. -CTA did not demonstrate any PE or focal infiltrate. Tree and bud appearance within the lungs bilaterally which is nonspecific and consistent with COPD versus atypical pneumonia. -Received azithromycin 500 mg x 2 doses for anti-inflammatory effects and atypical pneumonia coverage and now on doxycycline 100 mg twice daily which will be discontinued as patient has had plenty of treatment for atypical pneumonia. Continue ceftriaxone 2 g daily x 3 days for UTI as below. Completed prednisone 40 mg x 5 days. Patient received methylprednisolone 125 mg x1 in ED. -Ordered complete pneumonia workup including: Respiratory viral PCR negative. Strep pneumoniae and Legionella urine antigens negative. Sputum culture which was positive for Haemophilus influenzae. Blood cultures x2 have no growth to date. -Consulted respiratory therapy for evaluation and treatment. Ordered DuoNebs every 4 hr while awake and albuterol nebs every 2 hr as needed and budesonide. Continue supplemental oxygen as needed and titrate off as tolerated. Oxygen saturation goal between 88- 92% and will likely need oxygen at discharge as above. 3. Acute UTI, present on admission. Active. -She denies dysuria but does have urinary symptoms including frequency and urgency that are ongoing making it hard to decipher whether she has true UTI or not. -Urine culture grew Klebsiella pneumoniae and E coli both sensitive to ceftriaxone and started ceftriaxone 2 g daily x 3 days. 4. Chronic vaping and former smoker present on admission. Stable. -Former smoker with 80 pack year history. -Discussed vaping cessation and risk of bronchiolitis obliterans and premature emphysema. -Recommended cessation. 5. Morbid obesity, present on admission. Stable. -BMI 43. -Risk stratify: Fasting lipid panel demonstrated total cholesterol 123, triglycerides 140, LDL 60, and HDL 35; and Hemoglobin A1c is normal at 5.6%. -Discussed lifestyle modification including: diet and exercise. Disposition: Patient does not have a PCP or insurance, therefore, INSPECTOR FILTER TIP has been consulted. Patient will likely discharge tomorrow now that home oxygen/nebs is being arranged. Will need a hospital follow-up appointment made prior to discharge. Quality VTE Deep Vein Thrombosis/Pulmonary Embolism Present on Admission: No
[2018-08-20] MEDS: SODIUM CHLORIDE 0.9% FLUSH 10 ML IV (20:54)
[2018-08-21 00:24] VITALS: O2SAT 93
[2018-08-21 03:06] VITALS: BP 141/68; PULSE 67; RESP 18; TEMP 36.6; O2SAT 94
[2018-08-21 04:42] VITALS: O2SAT 99
[2018-08-21] MEDS: ALBUTEROL/IPRATROPIUM 3 ML AMPUL INH ×2 (04:42→10:43)
[2018-08-21] MEDS: BUDESONIDE 120 PUFF/DEVICE INHALER INH (04:42)
[2018-08-21 07:30] VITALS: BP 157/66; PULSE 75; RESP 18; TEMP 36.5; O2SAT 92
[2018-08-21] MEDS: DOXYCYCLINE HYCLATE 100 MG TABLET PO (09:25)
[2018-08-21] MEDS: ENOXAPARIN 40 MG/0.4 ML SYRINGE SUBCUT (09:25)
[2018-08-21] MEDS: SODIUM CHLORIDE 0.9% FLUSH 10 ML IV (09:26)
[2018-08-21] MEDS: CEFTRIAXONE 2 GM/50 ML FROZ.PIGGY IV (09:27)
[2018-08-21 10:38] VITALS: PULSE 72; RESP 14; O2SAT 93
--- NOTE | 2018-08-21 10:56 | PM.DS.1 ---
History of Present Illness Date Patient Seen: 08/21/18 Chief complaint: CONFUSION,FUZZY INSIDE Narrative: This is a 63-year-old female patient with history COPD with emphysema and bronchitis not currently being treated who presents with increasing dyspnea over 10 days. Patient was initially diagnosed with bronchitis and emphysema in 2008 and had previously been on inhalers however she could not afford the medication. She has been on and off Spiriva. She has had worsening productive cough with clear sputum reports having normal wet cough but has had increasing exertional dyspnea and shortness of breath to the point on arrival in the ER she was sent rating at 83% on room air. Patient states she is not had any fevers or chills and denies chest pain has some nausea vomiting diarrhea or constipation. She has had nasal congestion or sore throat. She reports significant relief with oxygen therapy. Imaging indicates cardiogenic versus noncardiogenic/atypical infusions tree in bud appearance. CT is negative for embolism and describes left patchy infiltrate. Sputum cultures been obtained in the emergency department. Patient History Discharge Providers Date of admission: 08/15/18 11:58 Discharge Date: 08/21/18 Consults: 08/15/18 09:24 Consult to Respiratory Therapy Evaluate & Treat Comment: Physician Instructions: Evaluate and treat 08/15/18 21:55 Consult to Dietitian, Adult Routine Comment: Reason For Exam: Obesity, BMI 42.9 Consult to Discharge Planning Routine Comment: 08/16/18 20:59 Consult to Wireworker Routine Comment: No insurance or PCP Discharge provider: Sherry Joe MD Summary Discharge Diagnosis: Acute Hypoxic Respiratory Failure, present on admission COPD Exacerbation, present on admission Urinary Tract infection, resolved, present on admission Atypical Pneumonia, present on admission Morbid Obesity Vaping Hospital Course: Patient is a 63y/o female admitted for acute hypoxic respiratory failure. Patient presented with shortness of breath. CTA confirmed atypical infiltrates. Patient was treated with Azithryomycin. She was also found to have a UTI pansensitive and completed a three day course of antibiotics. She was treated with oxygen, nebulizers, and steroids. She made slow but steady improvement. We attempted multiple times to wean her off the oxygen. Unfortunately, with ambulation her oxygen level drops to 83% on room air. She is able to quickly recover, she saturates at 93% on room air when at rest. The patient will purchase home oxygen and use 1liter when ambulating. Status at Discharge Cognitive/behavioral status at discharge: oriented Functional status at discharge: independent ambulation Overall status at discharge: patient is not back to baseline Time Spent with Patient Less than 30 minutes Exam Vital Signs (past 8 hours): - 08/21/18 03:06 08/21/18 04:42 08/21/18 07:30 Temperature 97.9 F 97.7 F Pulse Rate 67 75 Respiratory Rate 18 18 Blood Pressure 141/68 H 157/66 H Pulse Oximetry 94 99 92 08/21/18 10:38 Temperature Pulse Rate 72 Respiratory Rate 14 Blood Pressure Pulse Oximetry 93 Fraction of Inspired Oxygen 30 Oxygen Delivery Method Room Air Oxygen Flow Rate 1 Narrative Exam Narrative: Pleasant female resting comfortably at rest. Winded with ambulation off oxygen Lungs: decreased breath sounds bilaterally but clear to ausculatation CV; RRR nl Sl S2 Abd: soft/ non tender/ non distended Ext: no edema Objective Labs Result Diagrams: 08/19/18 07:00 08/19/18 07:00 Discharge Plan Discharge Plan Discharge Problem: COPD exacerbation Patient Disposition: Home Discharge comment: Follow up with [facility] for appointment Discharge Med Rec/Prescriptions Prescriptions: New Dulera 200-5 mcg/actuation HFA aerosol inhaler 2 puff INHALATION BID 60 Days RF: 0 tiotropium bromide 18 mcg capsule, w/inhalation device 1 cap INHALATION DAILY Qty: 60 RF: 0 No Action No Known Home Medications RF: 0 Follow up/Referrals: Sherry Joe MD [Physician] - Provider Discharge Instructions Diet: Low-fat and Low-sodium Activity: as tolerated Oxygen: 1 liter of oxygen with activity. No oxygen at rest for Saturation over 92% Skin/Wound/Dressing Care Report to your healthcare provider any signs of infection, such as:: chills, fever and night sweats Discharge Data Attending Provider: Harika Duran Admit Date/Time: 08/15/18 11:58 Quality VTE Deep Vein Thrombosis/Pulmonary Embolism Present on Admission: No
[2018-08-21 12:00] VITALS: BP 159/61; PULSE 75; RESP 16; TEMP 36.5; O2SAT 92
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
--- NOTE | 2018-08-21 13:55 | CM.DPC ---
DCP Discharge Home Per MD, pt medically stable to d/c home today after pt assessed for home oxygen by RT and determined that pt will need 1L Oxygen at home at d/c. MD and RT working together to set up pt with Private Pay home oxygen and RT was able to obtain home oxygen tank and supplies needed and showed pt and spouse how to use and received through [facility]. SW met bedside with pt and spouse and both still agreeable to d/c home today. SW answered questions and provided them with the brochure for [facility] to help with enrolling in medical insurance and spouse plans to head [facility] to [facility] now since they live in [place]. Pt also has the list of tucker pay PCP/Clinics on [facility] and also plans to further discuss with the [facility]. Plan: Patient to d/c home today via spouse POV [facility]. Pt following up on enrolling in medical insurance and seeking support through the [facility] after d/c. STANISLAW Lindo
--- NOTE | 2018-08-24 16:25 | PM.PFT.1 ---
Pulmonary Function Test Referral & Results Date Patient Seen: 08/18/18 Requesting provider: Sherry Joe Results: The spirometry demonstrates an FVC of 2.39 L which is 70% of predicted. This is a bedside spirometry for an inpatient. The FEV1 was measured at 1.08 L which is 40% of predicted. The FEV1/FVC ratio was 45 which is 57% of predicted. Following the administration of bronchodilator there was an 8 % improvement in FEV1 and a 15 % improvement in FEF 25-75%. Interpretation: This study demonstrates spirometry consistent with moderately severe obstructive lung disease. There is minimal evidence of benefit following bronchodilator primarily small airway flow based on minimal improvement in FEF 25-75% Clinical correlation suggested
== END 2018-08-21 13:35 | disposition home or self-care (01) | DRG 193 ==
LOC: ED 11:46 → AC 13:23
PROVIDERS: Nurse Practitioner Adult Health; Admitting Provider Internal Medicine; Emergency Provider Emergency Medicine; Visit Provider Internal Medicine
DX: J15.9 Unspecified bacterial pneumonia (principal); J96.21 Acute and chronic respiratory failure with hypoxia; J44.1 Chronic obstructive pulmonary disease with (acute) exacerbation; Z68.41 Body mass index [BMI] 40.0-44.9, adult; N39.0 Urinary tract infection, site not specified; E66.01 Morbid (severe) obesity due to excess calories; B96.1 Klebsiella pneumoniae [K. pneumoniae] as the cause of diseases classified elsewhere; B96.20 Unspecified Escherichia coli [E. coli] as the cause of diseases classified elsewhere; F17.290 Nicotine dependence, other tobacco product, uncomplicated
CPT/HCPCS: 36415; 36591; 71046; 71275; 80048; 80053; 80061; 81001; 82550; 82553; 82962; 83036; 83605; 83735; 83880; 84145; 84484; 85025; 87070; 87077; 87086; 87186; 87205; 87400; 87449; 87633; 93005; 94618; 94640; 94660; 94760; 94762; 96365; 96366; 96375; 99285; J0696; J1650; J2543; J2930; J7613

== ENCOUNTER → 2021-11-25 14:26 | Outpatient (CLI) | payer MEDICARE, SELFPAY ==
[2018-08-15 14:58] VITALS: BMI 42.9
== END ==
PROVIDERS: PCP Physician Assistant; Referring Provider Physician Assistant; Visit Provider Physician Assistant
DX: Z13.820 Encounter for screening for osteoporosis; Z78.0 Asymptomatic menopausal state; M85.852 Other specified disorders of bone density and structure, left thigh; Z90.710 Acquired absence of both cervix and uterus
CPT/HCPCS: 77080

== ENCOUNTER → 2021-12-03 16:55 | Outpatient (CLI) | payer MEDICARE, SELFPAY ==
[2018-08-15 14:58] VITALS: BMI 42.9
[2021-12-03 19:31] LABS: COVID19 -Nasal RAPID Negative (Negative)
== END ==
PROVIDERS: PCP Physician Assistant; Referring Provider Physician Assistant; Visit Provider Physician Assistant
DX: Z20.822 Contact with and (suspected) exposure to COVID-19 (principal); Z01.812 Encounter for preprocedural laboratory examination
CPT/HCPCS: 87635; C9803

== ENCOUNTER → 2021-12-04 14:39 | Outpatient (CLI) | payer MEDICARE, SELFPAY ==
[2018-08-15 14:58] VITALS: BMI 42.9
--- NOTE | 2021-12-12 10:53 | PM.PFT.1 ---
Pulmonary Function Test Referral & Results Date Patient Seen: 12/04/21 Requesting provider: Vianey Moore Results: The spirometry demonstrates an FVC of 2.16 L which is 66% of predicted. The FEV1 was measured at 1.08 L which is 43% of predicted. The FEV1/FVC ratio was 50 which is 64% of predicted. Following the administration of bronchodilator there was a 16% improvement in FEV1 and a 62% improvement in FEF 25-75%. Lung volumes show an SVC of 2.24 L which is 73% of predicted. The diffusing capacity was measured at 13.62 which is 53% of predicted. No hemoglobin value was provided, so no correction for potential anemia could be made, if appropriate. The maximum voluntary ventilation was reduced Interpretation: This study demonstrates moderately severe obstructive lung disease with FEV1 near 1 L and only 43% of predicted. However there is evidence of marked benefit following bronchodilator with the improvement in FEV1 as above as well as small airway flow based on improvement in FEF 25-75% There is evidence of mild restrictive lung disease based on reduction SVC Diffusing capacity is also significantly reduced suggesting significant disease at the capillary alveolar level Clinical correlation suggested
== END ==
PROVIDERS: PCP Physician Assistant; Referring Provider Physician Assistant; Visit Provider Physician Assistant
DX: R06.02 Shortness of breath (principal); J44.9 Chronic obstructive pulmonary disease, unspecified; Z87.891 Personal history of nicotine dependence
CPT/HCPCS: 94060; 94726; 94729

== ENCOUNTER → 2024-05-28 14:25 | Outpatient (CLI) | payer MEDICARE, SELFPAY ==
[2018-08-15 14:58] VITALS: BMI 42.9
--- NOTE | 2024-05-28 | DI.ECHO.S_ITS ---
[facility] : : [id number] : [place] : : [id number] : : Phone: [phone] Echocardiogram Report + + :Name: KAL ELMORE Study Date: 05/28/2024 Height: 65 in : :[facility] ReadingLocation: Weight: 296 lb : : Gender: Female BSA: 2.3 m2 : :: 1955 Age: 69 yrs BP: 125/69 mmHg: :Reason For Study: AORTIC VALVE STENOSIS : :Ordering Physician: MICHAEL, : :ERIKA Performed By: Emanuel Blanchard : :Referring: ERIKA SARMIENTO : + + Interpretation Summary Tehcnically difficult study. 1) Mildly increased left ventricular thickness (concentric) with normal size, normal wall motion, and systolic function (EF 60-65%). 2) Grossly, normal right ventricular size and function. 3) Calcific mitral and aortic valves. 4) Moderate mitral stenosis present (mean inflow gradient 9 mmHg). 5) There is moderate aortic stenosis (valve area 1.1cm2, mean gradient 24mmHg, severity ratio 0.37). 6) Compared to the Echo done 06/22/2023, no significant change. Procedure: A two-dimensional transthoracic echocardiogram with color flow and Doppler was performed. A contrast injection of Definity was performed to improve assessment of LV function. The study quality was technically difficult. Comparison is made with the echocardiogram of 06/22/2023. The patient was in normal sinus rhythm during the exam. Left Ventricle: The left ventricle is normal in size. There is mild concentric left ventricular hypertrophy. There is no ventricular septal defect visualized. The ejection fraction is estimated to be 60-65%. Left ventricular systolic function appears normal without focal wall motion abnormalities. Right Ventricle: The right ventricle is grossly normal size. The right ventricular systolic function is normal. Atria: The left atrium is mildly dilated. Right atrial size is normal. There is no Doppler evidence for an atrial septal defect. Mitral Valve: There is moderate to severe mitral annular calcification. The mitral valve mean gradient is 9 mmHg. There is moderate mitral stenosis. There is no mitral regurgitation noted. Aortic Valve: The aortic valve is not well visualized. There is moderate aortic stenosis. The peak aortic velocity is 3.4 m/sec. The aortic valve mean gradient is 24.1 mmHg. No aortic regurgitation is present. Tricuspid Valve: The tricuspid valve is not well visualized. Pulmonary artery pressures cannot be estimated because of the lack of a measurable TR jet velocity. Pulmonic Valve: The pulmonic valve is not well visualized. Great Vessels: The aortic root is normal size. The ascending aorta could not be visualized. The pulmonary is not well visualized. The IVC is dilated (diameter is greater than 2.1 cm) yet it collapses greater than 50% with a sniff. This suggests a right atrial pressure of 8 mm Hg. Pericardium/ Pleura There is no pericardial effusion. There is no pleural effusion. MMode/2D Measurements & Calculations LVIDd: 4.9 cm LVOT diam: 1.9 cm LVIDs: 2.5 cm Ao root diam: 3.1 cm FS: 48.1 % EPSS: 0.62 cm IVSd: 1.3 cm LVPWd: 1.5 cm LV burr. diameter/BSA (cm/m^2): 2.1 LV sys. diameter/BSA (cm/m^2): 1.1 LA A2 area: 22.0 cm2 RA long axis: 4.8 cm LA A4 area: 25.2 cm2 RA area: 12.2 cm2 LA length (vol): 6.1 cm RA vol: 26.3 ml LA vol: 76.5 ml RA : 11.3 ml/m2 LA vol index: 32.7 ml/m2 IVC diam: 2.2 cm TAPSE: 2.3 cm Doppler Measurements & Calculations Ao V2 max: 340.1 cm/sec LVOT Max Bonifacio: 120.5 cm/sec Ao V2 mean: 228.3 cm/sec LV V1 max P.8 mmHg Ao max P.3 mmHg LV V1 VTI: 28.0 cm Ao mean P.1 mmHg GABE(I,D): 1.1 cm2 Ao V2 VTI: 75.6 cm GABE(V,D): 1.0 cm2 sev ratio: 0.37 GABE indexed to BSA (cm^2/m^2): 0.46 MV E max bonifacio: 145.5 cm/sec MV V2 mean: 153.8 cm/sec MV A max bonifacio: 151.3 cm/sec MV mean P.3 mmHg MV E/A: 0.96 MV V2 VTI: 62.6 cm Med Peak E' Bonifacio: 4.7 cm/sec E/E' med: 31.1 Lat Peak E' Bonifacio: 4.4 cm/sec E/E' lat: 33.0 E/e' average: 32.0 MV dec time: 0.48 sec MVA(VTI): 1.3 cm2 SV(LVOT): 81.2 ml Reading Physician:12:18 PM
== END ==
PROVIDERS: PCP Family Medicine; Referring Provider Internal Medicine Cardiovascular Disease; Visit Provider Internal Medicine Cardiovascular Disease
DX: I08.0 Rheumatic disorders of both mitral and aortic valves
CPT/HCPCS: C8929; Q9957

== ENCOUNTER 2025-02-28 09:01 | Day surgery (SDC) | payer MEDICARE, SELFPAY ==
[2018-08-15 14:58] VITALS: BMI 42.9
--- NOTE | 2025-02-28 | PATH_ITS ---
[facility] Accession Number: [id number] No. of containers..03 Tissue . 01 Material submitted: . PART A: duodenum - DUODENAL POLYPS PART B: stomach - ANTRAL POLYPS PART C: esophagus - ESOPHAGUS . 01 Diagnosis: A. 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 Negative for villous blunting and intraepithelial lymphocytosis. Negative for dysplasia and malignancy. . B. ANTRAL POLYPS, BIOPSY: Antral mucosa with mild foveolar hyperplasia. Distinct features of fundic gland or hyperplastic polyps not seen. Negative for Helicobacter organisms by H/E stain. Negative for intestinal metaplasia, dysplasia, and malignancy. . C. ESOPHAGUS, BIOPSY: Squamous mucosa with mild reflux changes. Negative for intraepithelial eosinophilia, dysplasia, and malignancy. [facility] 03/12/2025 [facility] Local . 01 Electronically signed: . Yandy Marti DO, Pathologist NPI- [id number] . 01 Gross description: . Received are three formalin-filled containers each labeled with the patient's name. . A. In a container labeled duodenal polyps. The specimen consists of three fragments of ritter-nguyen soft tissue which range in size from less than 0.1 cm to 0.3 x 0.2 x 0.2 cm. All fragments are totally submitted in cassette A1. B. In a container labeled antral polyps. The specimen consists of two fragments of nguyen, soft tissue which range in size frrom 0.1 x 0.1 x 0.1 cm to 0.4 x 0.2 x 0.2 cm. All fragments are totally submitted in cassette B1. C. In a container labeled esophagus biopsy. The specimen consists of two fragments of nguyen, soft tissue which range in size from 0.2 x 0.2 x 0.2 cm to 0.3 x 0.3 x 0.2 cm. All fragments are totally submitted in cassette C1. ([id number]) /OMAIRA 03/08/2025 0010 Local . 01 Pathologist provided ICD-10: D50.9 . 01 CPT . 420342, 809026, 703400 Specimen Comment: A courtesy copy of this report has been sent to [facility] Pathology Performed at: [address] [address], [place], [place] [id number] MD Ignacio Aquino MD Phone: [phone]
--- NOTE | 2025-02-28 05:55 | PM.HP.IH.1 ---
History of Present Illness History of Present Illness Date Patient Seen: 02/28/25 Time Patient Seen: 05:56 [place] [facility]ative: Patient presents to discuss GI endoscopy for anemia. She was first diagnosed with anemia during a hospitalization at [facility] a year and a half ago. She was able to increase her hemoglobin with iron and avoided a transfusion at that time. In November she required 2 units of packed red blood cells. Her indices do not show a classic iron deficiency pattern. She denies seeing any blood in vomit urine or stool. She has never had GI endoscopy. She denies family history for colon cancer. She denies constipation or diarrhea. She has a history of endometriosis. She denies a history of peptic ulcer disease. She quit smoking in 2008 and quit nicotine in 2010. She requires supplemental oxygen at baseline. She consumes alcohol rarely. She used to take nonsteroidals and currently avoids them. She can eat spicy foods without complaint. She denies abdominal pain or reflux symptoms. [facility] Medical History (Updated 01/23/25 @ 09:05 by Magnus Shannon MD) Chronic bronchitis Emphysema lung COPD (chronic obstructive pulmonary disease) Surgical History History of appendectomy H/O: hysterectomy Social History household members: spouse alcohol intake: current Meds Home Medications and Allergies Home Medications ?Medication ?Instructions ?Recorded ?Confirmed ?Type tiotropium bromide 18 mcg capsule 1 cap inhalation DAILY #60 08/21/18 Rx with inhalation device inhalations albuterol sulfate 90 mcg/actuation 2 puff inhalation Q6H PRN 01/23/25 01/23/25 History aerosol inhaler ferrous sulfate 325 mg (65 mg 325 mg PO DAILY 01/23/25 01/23/25 History iron) tablet fluticasone 250 mcg-salmeterol 50 inhalation 01/23/25 01/23/25 History mcg/dose blistr powdr for inhalation losartan 100 mg tablet 100 mg PO DAILY 01/23/25 01/23/25 History spironolactone 25 mg tablet 25 mg PO DAILY 01/23/25 01/23/25 History peg 3350-electrolytes 236 240 ml PO Q10M #4,000 mL 01/31/25 Rx gram-22.74 gram-6.74 gram-5.86 gram solution (Golytely) Allergies Allergy/AdvReac Type Severity Reaction Status Date / Time No Known Drug Allergies Allergy Verified 01/23/25 08:35 Exam Narrative Exam Narrative: In a wheelchair, requires supplemental oxygen. Const General: no acute distress Orientation: alert and oriented x3 HENMT Ears: hearing grossly normal bilaterally Eyes Visual Simon: normal visual simon by confrontation Conjunctivae: conjunctivae normal Sclera: sclerae normal EOM: EOM intact bilaterally Resp Effort & Inspection: normal respiratory effort and able to speak in complete sentences Cardio Rate: regular rate GI Palpation: soft (NT) Assessment & Plan Assessment and plan (1) Anemia: Qualifiers: Anemia type: unspecified type Qualified Code(s): D64.9 - Anemia, unspecified Status: Acute Plan Chronic anemia of unclear etiology. Plan EGD/colonoscopy. The risks, benefits and options regarding the procedure were explained to the patient in detail. Risk discussion included but not limited to: bleeding, perforation, unable to reach cecum, missed lesion. The patient was encouraged to ask questions and they were answered to their satisfaction. The patient understands and is agreeable to proceed. Time-Based Coding :: [TOTAL MINUTES] spent with patient and on the chart (including review of chart, obtaining history, exam, reviewing outside data, placing orders, documenting exam and treatment plan, and counseling patient) on [DATE]. [employer] Document charge(s): Yes Charge Codes Inpatient/observation care including admit and discharge same day: [id number]
[2025-02-28 09:46] VITALS: BP 142/76; PULSE 115; RESP 20; TEMP 36.4; O2SAT 89
[2025-02-28] MEDS: LACTATED RINGERS 1,000 ML 42 ML IV (10:00)
[2025-02-28 10:22] LABS: Add Manual Diff / Slide Review NO; Hematocrit 24.9 % (36-46); Hemoglobin 8.7 g/dL (12.0-16.0); Lymphocytes Absolute Auto 1600 /uL (1100-4500); Mean Corpuscular HGB Conc 35.0 % (30-36); Mean Corpuscular Hemoglobin 33.1 PG (26-34); Mean Corpuscular Volume 94.5 fL (80-100); Platelet Count 437 X10^3/uL (150-400)
[2025-02-28 10:28] LABS: Blood Urea Nitrogen 21 mg/dL (7-17); Calcium 9.4 mg/dL (8.4-10.2); Carbon Dioxide 21 mmol/L (22-32); Chloride 104 mmol/L (98-107); Estimated Glomerular Filt Rate > 60 mL/min (>60); Glucose 133 mg/dL (70-99); HEMOLYSIS < 15 (0-50); Potassium 4.0 mmol/L (3.4-5.1); Sodium 139 mmol/L (137-145)
--- NOTE | 2025-02-28 10:47 | P.OP.EGD&C_ITS ---
Operative Date/Time/Diagnoses Date of procedure: 02/28/25 Time of procedure: 11:52 Pre-op diagnosis: Anemia Post-op diagnosis: other (Duodenal polyps, small hiatal hernia, mild esophagitis) Procedure & Clinicians Study performed: EGD with biopsy, colonoscopy Same procedure(s) as scheduled: Yes Indications: 69yo F with unexplained anemia requiring transfusion Surgeon: Magnus Shannon Anesthesia Type: MAC +/- Procedure Notes SCOAP/Timeout: Performed Procedure in detail: EGD Informed consent was obtained. The procedure, its risks, benefits, and alternatives were discussed. Patient understood and agreed to proceed. The patient was placed in the left lateral decubitus position with head elevated. Sedation given per anesthesia. The video endoscope was inserted into the oropharynx and guided under direct vision into the esophagus, stomach, and duodenum which were carefully examined. The scope was retroflexed to examine the hiatus and gastroesophageal junction. Antral biopsies were obtained for Helicobacter pylori. The patient tolerated the procedure very well. There were no apparent complications. Significant EGD findings: Z-line noted at: 37cm Multiple duodenal polyps, adenomatous in appearance, 6-9mm, sessile, multiple cold biopsies taken for sampling, this would be a likely source for chronic anemia, no active bleeding at time of endoscopy Small 2cm hiatal hernia, no esophageal stricture Mild LA Grade A esophagitis, biopsies taken to r/o Greene's Mild antritis, biopsies taken for H pylori Colonoscopy Patient placed in left lateral recumbent position. Time out was performed. Procedural sedation was administered by anesthesia. Examination began with a thorough inspection of the perianal area. There was no evidence of fissures, fistulae, external hemorrhoids or cutaneous malignancy. The colonoscope was then placed into the rectum and the lumen was insufflated with carbon dioxide. The scope was carefully advanced forward. Ultimately the cecum was intubated and confirmed by identification of the ileocecal valve, the appendiceal orifice and the confluence of the taenia. The scope was then slowly withdrawn examining the colon thoroughly in all directions. In the rectum, retroflexion of the scope was performed for inspection of the distal rectum and anal canal. ?Significant colonoscopy findings: ?1. Quality of the preparation-good, [place] 2-3, improved with irrigation/suction ?2. Normal colonoscopy: No polyps, diverticulae, mass, stricture Scope withdrawal time: 6 minutes Findings: gastritis, hiatal hernia and polyp (Duodenal polyps) Specimen(s): other (biopsies) Complications: none Impression: Multiple adenomatous polyps in duodenum, biopsies pending Small 2cm hiatal hernia, LA Grade A esophagitis, biopsies pending Mild antral gastritis, biopsies pending Normal screening colonoscopy Post-procedure Recommendations: Colonscopy in 10 years Plan for aftercare: PACU then home Follow up: as needed Disposition: PACU
[2025-02-28 11:48] VITALS: BP 96/52; PULSE 88; RESP 16; TEMP 36.6; O2SAT 100
[2025-02-28 11:54] VITALS: BP 100/52; PULSE 88; RESP 16; O2SAT 98
[2025-02-28 11:59] VITALS: BP 107/53; PULSE 90; RESP 14; O2SAT 96
[2025-02-28 12:04] VITALS: BP 111/66; PULSE 90; RESP 14; O2SAT 96
[2025-02-28 12:07] VITALS: BP 111/69; PULSE 90; RESP 14; TEMP 36.1; O2SAT 98
== END 2025-02-28 12:18 | disposition home or self-care (01) ==
PROVIDERS: Student in an Organized Health Care Education/Training Program; PCP Family Medicine; Referring Provider Surgery; Visit Provider Surgery
PROC: 0DJ08ZZ Inspection of Upper Intestinal Tract, Via Natural or Artificial Opening Endoscopic (ICD-10-PCS; CPT 43239; principal; 2025-02-28 10:30)
PROC: 0DJD8ZZ Inspection of Lower Intestinal Tract, Via Natural or Artificial Opening Endoscopic (ICD-10-PCS; CPT 45378; 2025-02-28 10:30)
DX: D64.9 Anemia, unspecified (principal); K20.90 Esophagitis, unspecified without bleeding; K44.9 Diaphragmatic hernia without obstruction or gangrene; Z87.891 Personal history of nicotine dependence; K29.70 Gastritis, unspecified, without bleeding
CPT/HCPCS: 43239; 45378; 80048; 85025; J2704; J7120

== ENCOUNTER → 2025-05-03 08:47 | Outpatient (CLI) | payer MEDICARE, SELFPAY ==
[2018-08-15 14:58] VITALS: BMI 42.9
--- NOTE | 2025-05-03 08:48 | DI.ECHO.S_ITS ---
[facility] : : [id number] : : [place] : : [id number] : : Phone: [phone] Echocardiogram Report + + :Name: KAL ELMORE Study Date: 05/03/2025 Height: 64 in : :[facility] ReadingLocation: Weight: 256 lb: : Gender: Female BSA: 2.2 m2 : :: 1955 Age: 70 yrs : :Reason For Study: MITRAL VALVE STENOSIS : :Ordering Physician: MICHAEL, : :ERIKA Performed By: Emanuel Blanchard : :Referring: ERIKA SARMIENTO : + + Interpretation Summary 1) Mildly increased left ventricular thickness (concentric) with normal size, and normal systolic function (EF 65-70%). 2) Mildly to moderately enlarged right ventricle with normal function. 3) The left atrium is severely dilated. 4) Calcific mitral valve with moderate stenosis (mean infolow gradient 10.3 mmHg with HR around 110bpm). 5) There is moderate aortic stenosis (valve area 1.2cm2, mean gradient 29mmHg, severity ratio 0.40). 6) Compared to the Echo done 05/28/2024, no significant change. Procedure: A two-dimensional transthoracic echocardiogram with color flow and Doppler was performed. The study quality was technically difficult. Comparison is made with the echocardiogram of 05/28/2024. The patient was in a tachycardic rhythm during the exam. Left Ventricle: The left ventricle is normal in size. Left ventricular wall thickness is mildly increased. There is no ventricular septal defect visualized. The ejection fraction is estimated to be 65-70%. Left ventricular systolic function appears normal without focal wall motion abnormalities. Right Ventricle: The right ventricle is mild to moderately dilated. The right ventricular systolic function is normal. Atria: The left atrium is severely dilated. The right atrium is borderline dilated. There is no Doppler evidence for an interatrial shunt. Mitral Valve: There is moderate to severe mitral annular calcification. There is moderate mitral stenosis. The mitral valve mean gradient is 10.3 mmHg. There is no mitral regurgitation noted. Aortic Valve: The aortic valve is not well visualized. There is moderate aortic stenosis. The aortic valve mean gradient is 29 mmHg. No aortic regurgitation is present. Tricuspid Valve: The tricuspid valve is not well visualized. Pulmonary artery pressures cannot be estimated because of the lack of a measurable TR jet velocity. Pulmonic Valve: The pulmonic valve is not well visualized. There is no pulmonic valvular regurgitation. Great Vessels: The aortic root is normal size. The dimensions of the ascending aorta are normal. The pulmonary is not well visualized. The IVC is dilated (diameter is greater than 2.1 cm) yet it collapses greater than 50% with a sniff. This suggests a right atrial pressure of 8 mm Hg. Pericardium/ Pleura There is no pericardial effusion. There is no pleural effusion. MMode/2D Measurements & Calculations LVIDd: 4.7 cm LVOT diam: 2.0 cm LVIDs: 2.7 cm Ao root diam: 2.9 cm FS: 41.4 % asc Aorta Diam: 2.9 cm EPSS: 0.99 cm IVSd: 1.4 cm LVPWd: 1.4 cm LV burr. diameter/BSA (cm/m^2): 2.2 LV sys. diameter/BSA (cm/m^2): 1.3 LA A2 area: 30.8 cm2 RA long axis: 5.6 cm LA A4 area: 31.5 cm2 RA area: 19.6 cm2 LA length (vol): 6.6 cm RA vol: 58.5 ml LA vol: 124.2 ml RA : 26.9 ml/m2 LA vol index: 57.2 ml/m2 IVC diam: 2.3 cm RVD1 (basal): 5.2 cm RVD2 (mid): 3.9 cm TAPSE: 2.3 cm Doppler Measurements & Calculations Ao V2 max: 412.6 cm/sec LVOT Max Bonifacio: 147.1 cm/sec Ao V2 mean: 273.2 cm/sec LV V1 max P.7 mmHg Ao max P.1 mmHg LV V1 VTI: 28.1 cm Ao mean P.2 mmHg GABE(I,D): 1.3 cm2 Ao V2 VTI: 69.6 cm GABE(V,D): 1.2 cm2 sev ratio: 0.40 GABE indexed to BSA (cm^2/m^2): 0.61 Med Peak E' Bonifacio: 5.8 cm/sec PA V2 max: 96.8 cm/sec Lat Peak E' Bonifacio: 6.1 cm/sec PA V2 mean: 74.5 cm/sec MVA(VTI): 1.8 cm2 PA mean P.4 mmHg PA pr(Accel): 51.6 mmHg MV V2 mean: 200.3 cm/sec SV(LVOT): 92.0 ml MV mean P.0 mmHg MV V2 VTI: 52.0 cm Reading Physician:06:17 PM
== END ==
LOC: ECHO 08:48
PROVIDERS: PCP Family Medicine; Referring Provider Family Medicine; Visit Provider Internal Medicine Cardiovascular Disease
DX: I35.0 Nonrheumatic aortic (valve) stenosis (principal); I34.2 Nonrheumatic mitral (valve) stenosis
CPT/HCPCS: 93306

== ENCOUNTER 2025-05-03 13:19 | Inpatient (IN) | payer MEDICARE, SELFPAY ==
[2018-08-15 14:58] VITALS: BMI 42.9
[2025-05-03] VITALS (12 sets, daily range): BP systolic 87–154; BP diastolic 45–64; PULSE 90–124; RESP 15–30; TEMP 36.7–37.3; O2SAT 91–99; BMI 43.9; BMI 43.4
--- NOTE | 2025-05-03 13:23 | ED.SOB ---
HPI - SOB/Dyspnea <Flores Reeder, DO - Last Filed: 05/06/25 07:26> General Chief Complaint: Shortness of Breath/Dyspnea Stated Complaint: O2 levels are low 84, SOB (COPD) 2 days Time Seen by Provider: 05/03/25 13:21 Source: patient, RN notes reviewed and old records reviewed Mode of arrival: Ambulatory Limitations: no limitations History of Present Illness HPI Narrative: 83-year-old female history of hypertension, dyslipidemia, COPD on 3 L at baseline, patient presents with a complaint of increased shortness of breath and cough.? She knows her elevated heart rate has been elevated as well.? She denies fevers or chills.? No new nasal congestion, no chest pain or pressure, states she has had a cough describes it as nonproductive.? No new swelling in her extremities.? No abdominal back or flank pain.? No nausea or vomiting.? No other GI or urinary symptoms.? Patient states no acute medication changes.? She does use albuterol regularly as well as what sounds like a steroid inhaler. She notes she has been a little bit jaundice for the last couple of months. No itching. No known liver issues. No known drug allergies. Former smoker, occasional alcohol, no recreational drugs. Dr. Danielle is her primary care physician. Dr. Sarmiento is her landscape supervisor. She follows with Pulmonology. Related Data Home Medications ?Medication ?Instructions ?Recorded ?Confirmed albuterol sulfate 90 mcg/actuation 2 puff inhalation Q6H PRN 01/23/25 05/03/25 aerosol inhaler shortness of breath or wheezing ferrous sulfate 325 mg (65 mg 325 mg PO DAILY 01/23/25 05/03/25 iron) tablet fluticasone 250 mcg-salmeterol 50 2 inh inhalation QID 01/23/25 05/03/25 mcg/dose blistr powdr for inhalation losartan 100 mg tablet 100 mg PO DAILY 01/23/25 05/03/25 spironolactone 25 mg tablet 25 mg PO DAILY 01/23/25 05/03/25 empagliflozin 10 mg tablet 10 mg PO DAILY 05/03/25 05/03/25 (Jardiance) rosuvastatin 10 mg tablet (Crestor) 10 mg PO DAILY 05/03/25 05/03/25 Previous Rx's ?Medication ?Instructions ?Recorded tiotropium bromide 18 mcg capsule 1 cap inhalation DAILY #60 08/21/18 with inhalation device inhalations Allergies Allergy/AdvReac Type Severity Reaction Status Date / Time No Known Drug Allergies Allergy Verified 02/28/25 09:43 Review of Systems <Flores Reeder DO - Last Filed: 05/06/25 07:26> Review of Systems ROS Unobtainable: All systems reviewed & are unremarkable except as noted in HPI and below Patient History <Flores Reeder DO - Last Filed: 05/06/25 07:26> Medical History Chronic bronchitis Emphysema lung COPD (chronic obstructive pulmonary disease) Surgical History History of appendectomy H/O: hysterectomy Social History household members: spouse Smoking Status: Former smoker alcohol intake: current alcohol intake frequency: holidays/special occasions only Exam <Flores Reeder DO - Last Filed: 05/06/25 07:26> Initial Vital Signs Initial Vital Signs: Vital Signs Temperature 99.1 F 05/03/25 13:21 Pulse Rate 115 H 05/03/25 13:21 Respiratory Rate 20 05/03/25 13:21 Blood Pressure 120/60 05/03/25 13:21 Pulse Oximetry 93 05/03/25 13:21 Oxygen Delivery Method Nasal Cannula 05/03/25 13:21 Oxygen Flow Rate 3 05/03/25 13:21 <Rex Nieves MD - Last Filed: 05/03/25 23:31> Narrative Exam Narrative: General: Alert and conversant. Mild distress. Appears well nourished and well hydrated Craniofacial: No evidence of trauma. Nontender and no swelling. Eyes: PERRLA EOMI conjunctiva clear. Pale conjunctiva Lungs: Prolonged expiration with slightly diminished breath sounds. No wheezing, rales or rhonchi. No respiratory distress Cardiac: Regular rate and rhythm with no appreciable murmur or gallop Abdomen: Soft, nontender with no distention or masses. Normal bowel sounds. No rebound or guarding Neuro: Alert and oriented. Cranial nerves, motor, sensory and cerebellar all grossly intact. No focal deficit Skin: Warm and normal color. No rashes Psychological: Normal affect and interaction. No evidence of delusion or psychosis. Normal mood. Initial Vital Signs Initial Vital Signs: Vital Signs Temperature 99.1 F 05/03/25 13:21 Pulse Rate 115 H 05/03/25 13:21 Respiratory Rate 20 05/03/25 13:21 Blood Pressure 120/60 05/03/25 13:21 Pulse Oximetry 93 05/03/25 13:21 Oxygen Delivery Method Nasal Cannula 05/03/25 13:21 Oxygen Flow Rate 3 05/03/25 13:21 Course <Flores Reeder, DO - Last Filed: 05/06/25 07:26> Orders Ordered: Acetaminophen (Acetaminophen 325 Mg Tablet) 650 mg PO Q6H PRN PRN Reason: Fever/Mild Pain (1-3) Albuterol (Albuterol 2.5 Mg/3 Ml Neb (Adult)) 2.5 mg INH Q2H PRN PRN Reason: Shortness Of Breath Or Wheezing Albuterol/Ipratropium (Albuterol/Ipratropium 3 Ml Ampul) 3 ml INH RTQ4HR PRN PRN Reason: Shortness Of Breath Albuterol/Ipratropium (Albuterol/Ipratropium 3 Ml Ampul) 3 ml INH RTBID [facility] Last Admin: 05/05/25 19:22 Dose: 3 ml Documented By: Admin: 05/05/25 08:36 Dose: 3 ml Documented By: Admin: 05/04/25 19:28 Dose: 3 ml Documented By: NBA Atorvastatin Calcium (Atorvastatin 20 Mg Tablet) 20 mg PO DAILY [facility] Last Admin: 05/05/25 09:20 Dose: 20 mg Documented By: Admin: 05/04/25 09:10 Dose: 20 mg Documented By: YANA Budesonide (Budesonide 0.5 Mg/2 Ml Neb) 0.5 mg INH RTBID [facility] Last Admin: 05/05/25 19:22 Dose: 0.5 mg Documented By: Admin: 05/05/25 08:36 Dose: 0.5 mg Documented By: Admin: 05/04/25 19:28 Dose: 0.5 mg Documented By: Admin: 05/04/25 09:11 Dose: 0.5 mg Documented By: NBA Ferrous Sulfate (Ferrous Sulfate 325 Mg Tablet) 325 mg PO DAILY [facility] Last Admin: 05/05/25 09:20 Dose: 325 mg Documented By: Admin: 05/04/25 09:09 Dose: 325 mg Documented By: YANA Methylprednisolone (Methylprednisolone Succ 125 Mg/2 Ml Vial) 60 mg IV Q6H [facility] Last Admin: 05/06/25 03:00 Dose: 60 mg Documented By: Admin: 05/05/25 20:28 Dose: 60 mg Documented By: Admin: 05/05/25 15:31 Dose: 60 mg Documented By: Admin: 05/05/25 09:21 Dose: 60 mg Documented By: DAMIR Naloxone HCl (Naloxone 0.4 Mg/Ml Vial) 0.2 mg IV Q2MIN PRN PRN Reason: Opiate Reversal Ondansetron HCl (Ondansetron 4 Mg/2 Ml Inj) 4 mg IV Q8HR PRN PRN Reason: Nausea And Vomiting Last Admin: 05/03/25 20:44 Dose: 4 mg Documented By: ALISHA Spironolactone (Spironolactone 25 Mg Tablet) 25 mg PO DAILY [facility] Last Admin: 05/05/25 09:20 Dose: 25 mg Documented By: Admin: 05/04/25 09:09 Dose: 25 mg Documented By: YANA Discontinued Medications Albuterol (Albuterol 2.5 Mg/3 Ml Neb (Adult)) 2.5 mg INH [id number] [facility] Albuterol/Ipratropium (Albuterol/Ipratropium 3 Ml Ampul) 3 ml INH NOW ONE Stop: 05/03/25 20:17 Last Admin: 05/03/25 20:51 Dose: 3 ml Documented By: SMOOTH Albuterol/Ipratropium (Albuterol/Ipratropium 3 Ml Ampul) 3 ml INH [id number] [facility] Last Admin: 05/04/25 09:11 Dose: 3 ml Documented By: NBA Diphenhydramine HCl (Diphenhydramine 25 Mg Tablet) 25 mg PO NOW ONE Stop: 05/03/25 18:01 Last Admin: 05/03/25 18:58 Dose: 25 mg Documented By: ALISHA Enoxaparin Sodium (Enoxaparin 40 Mg/0.4 Ml Syringe) 40 mg SUBCUT DAILY [facility] Enoxaparin Sodium (Enoxaparin 40 Mg/0.4 Ml Syringe) 40 mg SUBCUT BID [facility] Last Admin: 05/04/25 09:11 Dose: 40 mg Documented By: YANA Furosemide (Furosemide 40 Mg/4 Ml Vial) 20 mg IV NOW ONE Stop: 05/03/25 17:59 Last Admin: 05/03/25 18:58 Dose: 20 mg Documented By: ALISHA Furosemide (Furosemide 40 Mg/4 Ml Vial) 20 mg IV NOW ONE Stop: 05/03/25 20:17 Last Admin: 05/03/25 20:44 Dose: 20 mg Documented By: ALISHA Furosemide (Furosemide 40 Mg/4 Ml Vial) 40 mg IV Q6H [facility] Last Admin: 05/04/25 17:06 Dose: 40 mg Documented By: JUAN CARLOSK Admin: 05/04/25 11:31 Dose: 40 mg Documented By: JUAN CARLOSK Admin: 05/04/25 03:59 Dose: 40 mg Documented By: FABIANA Furosemide (Furosemide 40 Mg/4 Ml Vial) 40 mg IV Q8H [facility] Last Admin: 05/05/25 02:13 Dose: 40 mg Documented By: Admin: 05/04/25 19:13 Dose: Not Given Documented By: LORENA Ceftriaxone Sodium 1,000 mg/ (Sodium Chloride) 100 mls @ 200 mls/hr IV NOW ONE Stop: 05/03/25 19:42 Last Infusion: 05/03/25 21:36 Dose: Infused Documented By: Admin: 05/03/25 20:44 Dose: 200 mls/hr Documented By: ALISHA Furosemide 40 mg/ Sodium (Chloride) 54 mls @ 108 mls/hr IV Q6H [facility] Methylprednisolone (Methylprednisolone Succ 125 Mg/2 Ml Vial) 125 mg IV NOW ONE Stop: 05/03/25 20:17 Last Admin: 05/03/25 21:11 Dose: 125 mg Documented By: EDDIE Methylprednisolone (Methylprednisolone Succ 125 Mg/2 Ml Vial) 60 mg IV Q6HR [facility] Last Admin: 05/04/25 23:43 Dose: 60 mg Documented By: Admin: 05/04/25 17:06 Dose: 60 mg Documented By: JUAN CARLOSK Admin: 05/04/25 11:31 Dose: 60 mg Documented By: Admin: 05/04/25 09:15 Dose: 60 mg Documented By: YANA Vital Signs Vital signs: Vital Signs - 8 hr 05/03/25 15:55 Pulse Rate 100 H Respiratory Rate 15 Blood Pressure 108/51 L Pulse Oximetry 96 Oxygen Delivery Method Room Air <Rex Nieves MD - Last Filed: 05/03/25 23:31> Orders Ordered: Acetaminophen (Acetaminophen 325 Mg Tablet) 650 mg PO Q6H PRN PRN Reason: Fever/Mild Pain (1-3) Albuterol (Albuterol 2.5 Mg/3 Ml Neb (Adult)) 2.5 mg INH Q2H PRN PRN Reason: Shortness Of Breath Or Wheezing Albuterol/Ipratropium (Albuterol/Ipratropium 3 Ml Ampul) 3 ml INH RTQ4HR PRN PRN Reason: Shortness Of Breath Albuterol/Ipratropium (Albuterol/Ipratropium 3 Ml Ampul) 3 ml INH RTBID [facility] Last Admin: 05/05/25 19:22 Dose: 3 ml Documented By: Admin: 05/05/25 08:36 Dose: 3 ml Documented By: Admin: 05/04/25 19:28 Dose: 3 ml Documented By: NBA Atorvastatin Calcium (Atorvastatin 20 Mg Tablet) 20 mg PO DAILY [facility] Last Admin: 05/05/25 09:20 Dose: 20 mg Documented By: Admin: 05/04/25 09:10 Dose: 20 mg Documented By: YANA Budesonide (Budesonide 0.5 Mg/2 Ml Neb) 0.5 mg INH RTBID [facility] Last Admin: 05/05/25 19:22 Dose: 0.5 mg Documented By: Admin: 05/05/25 08:36 Dose: 0.5 mg Documented By: Admin: 05/04/25 19:28 Dose: 0.5 mg Documented By: Admin: 05/04/25 09:11 Dose: 0.5 mg Documented By: NBA Ferrous Sulfate (Ferrous Sulfate 325 Mg Tablet) 325 mg PO DAILY [facility] Last Admin: 05/05/25 09:20 Dose: 325 mg Documented By: Admin: 05/04/25 09:09 Dose: 325 mg Documented By: YANA Methylprednisolone (Methylprednisolone Succ 125 Mg/2 Ml Vial) 60 mg IV Q6H [facility] Last Admin: 05/06/25 03:00 Dose: 60 mg Documented By: Admin: 05/05/25 20:28 Dose: 60 mg Documented By: Admin: 05/05/25 15:31 Dose: 60 mg Documented By: Admin: 05/05/25 09:21 Dose: 60 mg Documented By: DAMIR Naloxone HCl (Naloxone 0.4 Mg/Ml Vial) 0.2 mg IV Q2MIN PRN PRN Reason: Opiate Reversal Ondansetron HCl (Ondansetron 4 Mg/2 Ml Inj) 4 mg IV Q8HR PRN PRN Reason: Nausea And Vomiting Last Admin: 05/03/25 20:44 Dose: 4 mg Documented By: ALISHA Spironolactone (Spironolactone 25 Mg Tablet) 25 mg PO DAILY [facility] Last Admin: 05/05/25 09:20 Dose: 25 mg Documented By: Admin: 05/04/25 09:09 Dose: 25 mg Documented By: YANA Discontinued Medications Albuterol (Albuterol 2.5 Mg/3 Ml Neb (Adult)) 2.5 mg INH [id number] [facility] Albuterol/Ipratropium (Albuterol/Ipratropium 3 Ml Ampul) 3 ml INH NOW ONE Stop: 05/03/25 20:17 Last Admin: 05/03/25 20:51 Dose: 3 ml Documented By: SMOOTH Albuterol/Ipratropium (Albuterol/Ipratropium 3 Ml Ampul) 3 ml INH [id number] [facility] Last Admin: 05/04/25 09:11 Dose: 3 ml Documented By: NBA Diphenhydramine HCl (Diphenhydramine 25 Mg Tablet) 25 mg PO NOW ONE Stop: 05/03/25 18:01 Last Admin: 05/03/25 18:58 Dose: 25 mg Documented By: ALISHA Enoxaparin Sodium (Enoxaparin 40 Mg/0.4 Ml Syringe) 40 mg SUBCUT DAILY [facility] Enoxaparin Sodium (Enoxaparin 40 Mg/0.4 Ml Syringe) 40 mg SUBCUT BID [facility] Last Admin: 05/04/25 09:11 Dose: 40 mg Documented By: YANA Furosemide (Furosemide 40 Mg/4 Ml Vial) 20 mg IV NOW ONE Stop: 05/03/25 17:59 Last Admin: 05/03/25 18:58 Dose: 20 mg Documented By: ALISHA Furosemide (Furosemide 40 Mg/4 Ml Vial) 20 mg IV NOW ONE Stop: 05/03/25 20:17 Last Admin: 05/03/25 20:44 Dose: 20 mg Documented By: ALISHA Furosemide (Furosemide 40 Mg/4 Ml Vial) 40 mg IV Q6H [facility] Last Admin: 05/04/25 17:06 Dose: 40 mg Documented By: Admin: 05/04/25 11:31 Dose: 40 mg Documented By: Admin: 05/04/25 03:59 Dose: 40 mg Documented By: FABIANA Furosemide (Furosemide 40 Mg/4 Ml Vial) 40 mg IV Q8H [facility] Last Admin: 05/05/25 02:13 Dose: 40 mg Documented By: Admin: 05/04/25 19:13 Dose: Not Given Documented By: LORENA Ceftriaxone Sodium 1,000 mg/ (Sodium Chloride) 100 mls @ 200 mls/hr IV NOW ONE Stop: 05/03/25 19:42 Last Infusion: 05/03/25 21:36 Dose: Infused Documented By: Admin: 05/03/25 20:44 Dose: 200 mls/hr Documented By: ALISHA Furosemide 40 mg/ Sodium (Chloride) 54 mls @ 108 mls/hr IV Q6H [facility] Methylprednisolone (Methylprednisolone Succ 125 Mg/2 Ml Vial) 125 mg IV NOW ONE Stop: 05/03/25 20:17 Last Admin: 05/03/25 21:11 Dose: 125 mg Documented By: EDDIE Methylprednisolone (Methylprednisolone Succ 125 Mg/2 Ml Vial) 60 mg IV Q6HR [facility] Last Admin: 05/04/25 23:43 Dose: 60 mg Documented By: Admin: 05/04/25 17:06 Dose: 60 mg Documented By: Admin: 05/04/25 11:31 Dose: 60 mg Documented By: Admin: 05/04/25 09:15 Dose: 60 mg Documented By: YANA Vital Signs Vital signs: Vital Signs - 8 hr 05/03/25 15:55 Pulse Rate 100 H Respiratory Rate 15 Blood Pressure 108/51 L Pulse Oximetry 96 Oxygen Delivery Method Room Air MDM - SOB/Dyspnea <Flores Reeder DO - Last Filed: 05/06/25 07:26> Lab Data 05/06/25 05:32 05/06/25 05:32 Labs: Lab Results 05/03/25 05/03/25 05/03/25 Range/Units 13:50 16:29 18:29 WBC 15.2 H (4.5-11.0) X10^3/uL RBC 2.18 L (4.0-5.2) X10^6/uL Hgb 7.2 L (12.0-16.0) g/dL Hct 20.7 L* (36-46) % MCV 95.2 (80-100) fL MCH 33.2 (26-34) PG MCHC 34.9 (30-36) % RDW 16.3 H (11.6-14.8) % Plt Count 396 (150-400) X10^3/uL Neut % (Auto) 81.9 H (50-75) % Lymph % (Auto) 11.2 L (25-40) % [place] % (Auto) 4.9 (3-14) % Eos % (Auto) 0.9 L (2-4) % Baso % (Auto) 1.1 (0-2) % Neut # (Auto) 90999 H (1964-5337) /uL Lymph # (Auto) 1700 (0090-1013) /uL [place] # (Auto) 700 (0-900) /uL Eos # (Auto) 100 (0-450) /uL Baso # (Auto) 200 H (0-100) /uL PT 13.5 H (9.4-12.5) SECONDS INR 1.2 (0.9-1.3) Sodium 140 (137-145) mmol/L Potassium 4.2 (3.4-5.1) mmol/L Chloride 105 (98-107) mmol/L Carbon Dioxide 23 (22-32) mmol/L BUN 27 H (7-17) mg/dL Creatinine 0.83 (0.52-1.04) mg/dL Estimated GFR > 60 (>60) mL/min BUN/Creatinine Ratio 32.5 H (6-22) Glucose 121 H (70-99) mg/dL Lactate 1.0 (0.7-2.1) mmol/L Calcium 9.3 (8.4-10.2) mg/dL Total Bilirubin 4.4 H (0.2-1.3) mg/dL AST 25 (14-36) IU/L ALT 17 (<35) IU/L Alkaline Phosphatase 50 (38-126) U/L Troponin I 0.016 0.020 (0.01-0.034) ng/mL NT-Pro-B Natriuret Pep 1680 H (<125) pg/mL Total Protein 7.0 (6.3-8.2) g/dL Albumin 4.3 (3.5-5.0) g/dL Globulin 2.7 (1.7-4.1) g/dL Albumin/Globulin Ratio 1.6 (1.0-2.8) Lipase 59 (23-300) U/L SARS-CoV-2 (PCR) Negative (Negative) Influenza A (RT-PCR) Flu a negative (NEGATIVE) Influenza B (RT-PCR) Flu b negative (NEGATIVE) RSV (PCR) Negative (Negative) Blood Type A Negative Antibody Screen Negative Crossmatch See Detail MDM Narrative Medical decision making narrative: Labs show white count of 15.2 hemoglobin 7.2 7.7 in February was 14 before that in 2018 platelets are 396. Patient does note she has had blood transfusions in the past. INR is 1.2. Chemistries are appropriate BUN is 27 creatinine 0.83 glucose is 121 LFTs are normal troponin is 0.016, BNP is 1680. Repeat troponin: COVID/influenza/RSV is negative Chest x-ray shows cardiomegaly with minimal effusions increased vascularity suggestive of edema. CTA chest abdomen pelvis no areas of hemodynamically significant stenosis, vascular occlusion or aneurysmal dilation or dissection cholelithiasis without appearance of cholecystitis. New 6 mm left lower lobe nodule partially ground-glass appearance [address] follow up recommended. EKG shows sinus rhythm, rate of 95 CT 144 QRS 76 QTC of 437, nonspecific change. Patient has prior from 09/30/2023 which appears similar to todays. Patient had ECHO today but is not resulted. 70-year-old female history of COPD/asthma on 3 L normally on 1-2, hypertension, anemia patient notes she has had a blood transfusion in the past but no source of bleeding was found. She also notes she has been jaundice for the last couple of months. Suspect her breathing difficulties maybe a combination of anemia, COPD/asthma and CHF. Did not review patient's 6 mm pulmonary nodule. Patient has been noted to have significant discrepancy between blood pressures on each arm does not have any chest pain or pressure but CTA chest abdomen and pelvis was obtained. Repeat troponin pending. Patient signed out to Dr. Benavidez. 16:15 Patient care transferred to tn at the change of shift with 2nd troponin and disposition pending. This is a 70-year-old female patient with a history of COPD/asthma, hypertension who presents with shortness of breath. She is normally on 2 L at home and is now requiring 3 L. 20:10 I discussed the patient's care with Dr. Cassidy, hospitalist who agrees to admit the patient for CHF, anemia requiring transfusion and possible COPD. I have already ordered diuresis with IV furosemide. Also 2 units PRBCs and nebulizer and Solu-Medrol. <Rex Nieves MD - Last Filed: 05/03/25 23:31> Differential Diagnosis Differential diagnosis: Likely acute exacerbation of chronic obstructive airways disease, congestive heart failure, community acquired pneumonia and asthma with exacerbation Lab Data Attestation: I reviewed the patient's lab results. Labs: Lab Results 05/03/25 05/03/25 05/03/25 Range/Units 13:50 16:29 18:29 WBC 15.2 H (4.5-11.0) X10^3/uL RBC 2.18 L (4.0-5.2) X10^6/uL Hgb 7.2 L (12.0-16.0) g/dL Hct 20.7 L* (36-46) % MCV 95.2 (80-100) fL MCH 33.2 (26-34) PG MCHC 34.9 (30-36) % RDW 16.3 H (11.6-14.8) % Plt Count 396 (150-400) X10^3/uL Neut % (Auto) 81.9 H (50-75) % Lymph % (Auto) 11.2 L (25-40) % [place] % (Auto) 4.9 (3-14) % Eos % (Auto) 0.9 L (2-4) % Baso % (Auto) 1.1 (0-2) % Neut # (Auto) 03124 H (6234-2604) /uL Lymph # (Auto) 1700 (6859-3926) /uL [place] # (Auto) 700 (0-900) /uL Eos # (Auto) 100 (0-450) /uL Baso # (Auto) 200 H (0-100) /uL PT 13.5 H (9.4-12.5) SECONDS INR 1.2 (0.9-1.3) Sodium 140 (137-145) mmol/L Potassium 4.2 (3.4-5.1) mmol/L Chloride 105 (98-107) mmol/L Carbon Dioxide 23 (22-32) mmol/L BUN 27 H (7-17) mg/dL Creatinine 0.83 (0.52-1.04) mg/dL Estimated GFR > 60 (>60) mL/min BUN/Creatinine Ratio 32.5 H (6-22) Glucose 121 H (70-99) mg/dL Lactate 1.0 (0.7-2.1) mmol/L Calcium 9.3 (8.4-10.2) mg/dL Total Bilirubin 4.4 H (0.2-1.3) mg/dL AST 25 (14-36) IU/L ALT 17 (<35) IU/L Alkaline Phosphatase 50 (38-126) U/L Troponin I 0.016 0.020 (0.01-0.034) ng/mL NT-Pro-B Natriuret Pep 1680 H (<125) pg/mL Total Protein 7.0 (6.3-8.2) g/dL Albumin 4.3 (3.5-5.0) g/dL Globulin 2.7 (1.7-4.1) g/dL Albumin/Globulin Ratio 1.6 (1.0-2.8) Lipase 59 (23-300) U/L SARS-CoV-2 (PCR) Negative (Negative) Influenza A (RT-PCR) Flu a negative (NEGATIVE) Influenza B (RT-PCR) Flu b negative (NEGATIVE) RSV (PCR) Negative (Negative) Blood Type A Negative Antibody Screen Negative Crossmatch See Detail Imaging Data Chest x-ray: Attestation: I personally reviewed and interpreted this imaging study as follows: My Impression: Cardiomegaly with increased vascularity and congestion CT chest abdomen and pelvis: Radiologist's Impression: IMPRESSION: No areas of hemodynamically significant stenosis, vascular occlusion, aneurysmal dilation or dissection. Cholelithiasis without appearance of cholecystitis. New 6 mm left lower lobe nodule partially ground-glass in appearance. Six-month interval CT follow-up is recommended. MDM Narrative Medical decision making narrative: Labs show white count of 15.2 hemoglobin 7.2 7.7 in February was 14 before that in 2018 platelets are 396. Patient does note she has had blood transfusions in the past. INR is 1.2. Chemistries are appropriate BUN is 27 creatinine 0.83 glucose is 121 LFTs are normal troponin is 0.016, BNP is 1680. Repeat troponin: COVID/influenza/RSV is negative Chest x-ray shows cardiomegaly with minimal effusions increased vascularity suggestive of edema. CTA chest abdomen pelvis no areas of hemodynamically significant stenosis, vascular occlusion or aneurysmal dilation or dissection cholelithiasis without appearance of cholecystitis. New 6 mm left lower lobe nodule partially ground-glass appearance [address] follow up recommended. EKG shows sinus rhythm, rate of 95 CT 144 QRS 76 QTC of 437, nonspecific change. Patient has prior from 09/30/2023 which appears similar to todays. Patient had ECHO today but is not resulted. 16:15 Patient care transferred to tn at the change of shift with 2nd troponin and disposition pending. This is a 70-year-old female patient with a history of COPD/asthma, hypertension who presents with shortness of breath. She is normally on 2 L at home and is now requiring 3 L. 20:10 I discussed the patient's care with Dr. Cassidy, hospitalist who agrees to admit the patient for CHF, anemia requiring transfusion and possible COPD. I have already ordered diuresis with IV furosemide. Also 2 units PRBCs and nebulizer and Solu-Medrol. Discharge Plan Departure Patient Disposition: Admitted As Inpatient Clinical Impression: Symptomatic anemia, Acute exacerbation of CHF (congestive heart failure), COPD (chronic obstructive pulmonary disease) Admit Date/Time: 05/03/25 20:13 Admit Provider: Ramírez Cassidy
--- NOTE | 2025-05-03 13:28 | EKG_ITS ---
[facility] [address] [address] Test Date: 2025-05-03 Pat Name: Miryam Masters Department: [facility] Room: Gender: Female [employer] Furn[employer]: : [id number] Requested By: Order Number: [id number] Reading MD: Mahesh Weeks MD Measurements Intervals [place] Rate: 95 P: 57 PA: 144 QRS: 70 QRSD: 76 T: 49 QT: 348 QTc: 437 Interpretive Statements Normal sinus rhythm Low voltage QRS Cannot rule out Anterior infarct , age undetermined Electronically Signed On 05-04-2025 10:17:28 PST by Mahesh Weeks MD
--- NOTE | 2025-05-03 13:28 | DI.RAD.S_ITS ---
PROCEDURE: XR CHEST 1V INDICATIONS: Shortness of breath TECHNIQUE: One view of the chest was acquired. COMPARISON: [facility], CR, XR CHEST 2V, 08/15/2018, 9:41. FINDINGS: Surgical changes and devices: None. Lungs and pleura: Mild increased vascularity. Minimal costophrenic angle blunting. Mediastinum: Mediastinal contours appear normal. Heart size is enlarged. Bones and chest wall: No suspicious bony lesions. Overlying soft tissues appear unremarkable. IMPRESSION: Cardiomegaly with minimal effusions and increased vascularity suggestive of edema. Dictated by: Areli Osman M.D. on 05/03/2025 at 14:37 Approved by: Areli Osman M.D. on 05/03/2025 at 14:38
--- NOTE | 2025-05-03 14:03 | PC.NURSE ---
this nurse (RP nurse today) placed IV, collected 4pack, and labs (including cultures just incase ordered)
[2025-05-03 14:09] LABS: Add Manual Diff / Slide Review NO; Hemoglobin 7.2 g/dL (12.0-16.0); Lymphocytes Absolute Auto 1700 /uL (1100-4500); Mean Corpuscular HGB Conc 34.9 % (30-36); Mean Corpuscular Hemoglobin 33.2 PG (26-34); Mean Corpuscular Volume 95.2 fL (80-100); Platelet Count 396 X10^3/uL (150-400)
[2025-05-03 14:10] LABS: Hematocrit 20.7 % (36-46)
[2025-05-03 14:16] LABS: INR 1.2 (0.9-1.3); Prothrombin Time 13.5 SECONDS (9.4-12.5)
[2025-05-03 14:21] LABS: Lactate (Lactic Acid) 1.0 mmol/L (0.7-2.1)
[2025-05-03 14:22] LABS: Alanine Aminotransferase 17 IU/L (<35); Albumin 4.3 g/dL (3.5-5.0); Albumin Globulin Ratio 1.6 (1.0-2.8); Alkaline Phosphatase 50 U/L (38-126); Blood Urea Nitrogen 27 mg/dL (7-17); Calcium 9.3 mg/dL (8.4-10.2); Carbon Dioxide 23 mmol/L (22-32); Chloride 105 mmol/L (98-107); Estimated Glomerular Filt Rate > 60 mL/min (>60); Globulin 2.7 g/dL (1.7-4.1); Glucose 121 mg/dL (70-99); HEMOLYSIS < 15 (0-50); Lipase 59 U/L (23-300); Potassium 4.2 mmol/L (3.4-5.1); Sodium 140 mmol/L (137-145); Total Protein 7.0 g/dL (6.3-8.2)
[2025-05-03 14:34] LABS: NT-proBNP (BNP-Adult 18+) 1680 pg/mL (<125); Troponin I 0.016 ng/mL (0.01-0.034)
--- NOTE | 2025-05-03 14:39 | DI.CT.S_ITS ---
PROCEDURE: CT ANGIO CHEST ABDOMEN PELVIS INDICATIONS: hypoxia, bp discrepancy between arms, tachycardia TECHNIQUE: Precontrast 5 mm thick sections acquired from the lung apices to the iliac crests. After the administration of intravenous contrast, 2.5 mm thick sections again acquired from the lung apices to the iliac crests. Maximum intensity projection (MIP) oblique sagittal and coronal reformats were then acquired. For radiation dose reduction, the following was used: automated exposure control. COMPARISON: [facility], CT, CT ANGIO CHEST PE, 06/24/2023, 15:40. [facility], CT, CT CHEST WITHOUT CONTRAST, 06/23/2023, 10:23. FINDINGS: Image quality: Diagnostic. AORTA: No aortic aneurysm. No acute aortic syndrome. CHEST: Lower Neck: No enlarged lymph nodes. Thyroid: No thyroid nodules which require sonographic evaluation. Axillae: No enlarged lymph nodes. Chest Wall: Unremarkable. Lungs and Pleura: No pneumothorax or pleural effusions. 6 mm left lower lobe nodule, new compared to prior exam series 6, image 226, partially ground-glass in appearance. . Punctate lateral right middle lobe nodule series 6, image 219, unchanged. Heart: Heart size is normal. No pericardial effusion. Thoracic Vessels: Pulmonary arteries demonstrate normal size. Mediastinum and Joelle: Prominent mediastinal adenopathy increased compared to prior exam. Anterior right paratracheal lymph node series 5, image 59 measures 1 point 7 cm compared to 1.2 cm on prior. Esophagus: No wall thickening. Minimal hiatal hernia. ABDOMEN: Liver: No solid mass. Gallbladder: Luminal stones wall wall thickening. Biliary ducts: No biliary dilation. Pancreas: No ductal dilation. Spleen: Size is within normal limits. Splenule is noted. Adrenal Glands: No adrenal nodules. Kidneys and Ureters: No hydronephrosis. No solid mass. No complex renal cystic lesion which requires follow up. Stomach and Bowel: Normal colonic caliber, without significant wall thickening. Peritoneum: No abnormal intraperitoneal fluid. No free air. Ventral Wall: No hernia. Abdominal Nodes: No retroperitoneal or mesenteric adenopathy by size criteria. Vessels: Inferior vena cava is normal in size. PELVIS: Pelvic Organs: Unremarkable. Bladder: Unremarkable. Pelvic Nodes: No enlarged lymph nodes. Miscellaneous: No inguinal hernias are seen. Bones: Unremarkable. IMPRESSION: No areas of hemodynamically significant stenosis, vascular occlusion, aneurysmal dilation or dissection. Cholelithiasis without appearance of cholecystitis. New 6 mm left lower lobe nodule partially ground-glass in appearance. Six-month interval CT follow-up is recommended. Dictated by: Areli Osman M.D. on 05/03/2025 at 15:13 Approved by: Areli Osman M.D. on 05/03/2025 at 15:22
[2025-05-03 14:48] LABS: Influenza A - CEPHEID Flu A NEGATIVE (NEGATIVE); Influenza B - CEPHEID Flu B NEGATIVE (NEGATIVE)
[2025-05-03 14:51] LABS: COVID-19 CEPHEID 4-PLEX PCR Negative (Negative)
--- NOTE | 2025-05-03 14:55 | PC.NURSE ---
Patient blood pressure @1437 on left arm was 87/45, LILIANA Franklin was called to bedside to assess patient, Repeated blood pressure on the patients right arm @ 1438 and pressure read as 121/54, repeated pressure on patients left arm @ 1458 and pressure read as 93/52. made aware of differences of pressures on both arms.
[2025-05-03 17:10] LABS: Troponin I 0.020 ng/mL (0.01-0.034)
[2025-05-03] MEDS: diphenhydrAMINE 25 MG TABLET PO (18:58)
[2025-05-03] MEDS: FUROSEMIDE 40 MG/4 ML VIAL 20 MG IV ×2 (18:58→20:44)
--- NOTE | 2025-05-03 19:30 | PC.NURSE ---
No change from initial assessment. SINGH and orthopnea. 3L o2
--- NOTE | 2025-05-03 20:16 | PC.NURSE ---
Pt awake, alert and resting in bed on telemetry. No needs at this time. Blood type is A- and will need to be ordered from [place]. MD and PT aware of potential 5hr delay.
[2025-05-03] MEDS: ONDANSETRON 4 MG/2 ML INJ IV (20:44)
[2025-05-03] MEDS: ALBUTEROL/IPRATROPIUM 3 ML AMPUL INH (20:51)
[2025-05-03] MEDS: methylPREDNISolone succ 125 MG/2 ML VIAL IV (21:11)
[2025-05-04] VITALS (9 sets, daily range): BP systolic 118–152; BP diastolic 50–99; PULSE 91–123; RESP 16–24; TEMP 36.2–37.1; O2SAT 93–99
[2025-05-04] MEDS: FUROSEMIDE 40 MG/4 ML VIAL IV ×3 (03:59→17:06)
[2025-05-04 04:10] LABS: Add Manual Diff / Slide Review NO; Hemoglobin 7.3 g/dL (12.0-16.0); Lymphocytes Absolute Auto 800 /uL (1100-4500); Mean Corpuscular HGB Conc 34.7 % (30-36); Mean Corpuscular Hemoglobin 33.0 PG (26-34); Mean Corpuscular Volume 95.3 fL (80-100); Platelet Count 353 X10^3/uL (150-400)
[2025-05-04 04:23] LABS: Blood Urea Nitrogen 29 mg/dL (7-17); Calcium 8.6 mg/dL (8.4-10.2); Carbon Dioxide 22 mmol/L (22-32); Chloride 102 mmol/L (98-107); Estimated Glomerular Filt Rate > 60 mL/min (>60); Glucose 175 mg/dL (70-99); HEMOLYSIS < 15 (0-50); Potassium 4.5 mmol/L (3.4-5.1); Sodium 136 mmol/L (137-145)
[2025-05-04 04:37] LABS: Hematocrit 20.9 % (36-46)
--- NOTE | 2025-05-04 06:49 | PM.HP.1 ---
History of Present Illness History of Present Illness Date Patient Seen: 05/04/25 Time Patient Seen: 01:25 Chief complaint: O2 levels are low 84, SOB (COPD) 2 days Narrative: 70 year-old female with a past medical history of COPD on 2-3 L oxygen at baseline, hypertension, hyperlipidemia and possible CHF presents with complaint of shortness of breath. Per patient's report, the patient started having creased shortness of breath and a dry cough that started 2 days ago. The patient however denies any fever, chills, nausea, vomiting, diarrhea or chest pain. The patient states that the cough is dry. The patient admits to have some mild ankle edema bilaterally. In the emergency room, the patient was more dynamically stable but was requiring 4 L oxygen per nasal cannula. Labs shows a WBC of 15 hemoglobin of 7.2 normal lactic acid. Troponin was 0.0 1 repeat 0 was 0.02. BNP was 1680. Chest x-ray shows minimal effusion with increased vascular congestion. CT chest with angiography shows no PE does suggest 6 mm left lower lobe nodule that needs follow-up as outpatient with repeat CT scan. Patient was given IV Lasix, Solu-Medrol, DuoNebs as well as 1 unit of blood transfusion. Emperic IV Ceftriaxone also given for possible pneumonia. [facility] Medical History Chronic bronchitis Emphysema lung COPD (chronic obstructive pulmonary disease) Surgical History History of appendectomy H/O: hysterectomy Social History household members: spouse Smoking Status: Former smoker alcohol intake: current Meds Home Medications and Allergies Home Medications ?Medication ?Instructions ?Recorded ?Confirmed ?Type tiotropium bromide 18 mcg capsule 1 cap inhalation DAILY #60 08/21/18 05/03/25 Rx with inhalation device inhalations albuterol sulfate 90 mcg/actuation 2 puff inhalation Q6H PRN 01/23/25 05/03/25 History aerosol inhaler shortness of breath or wheezing ferrous sulfate 325 mg (65 mg 325 mg PO DAILY 01/23/25 05/03/25 History iron) tablet fluticasone 250 mcg-salmeterol 50 2 inh inhalation QID 01/23/25 05/03/25 History mcg/dose blistr powdr for inhalation losartan 100 mg tablet 100 mg PO DAILY 01/23/25 05/03/25 History spironolactone 25 mg tablet 25 mg PO DAILY 01/23/25 05/03/25 History empagliflozin 10 mg tablet 10 mg PO DAILY 05/03/25 05/03/25 History (Jardiance) rosuvastatin 10 mg tablet (Crestor) 10 mg PO DAILY 05/03/25 05/03/25 History Allergies Allergy/AdvReac Type Severity Reaction Status Date / Time No Known Drug Allergies Allergy Verified 02/28/25 09:43 Review of Systems Review of Systems ROS: Yes All systems reviewed with the patient and are negative except as otherwise documented Exam Vital Signs (past 8 hours): - 05/04/25 01:00 05/04/25 04:29 Temperature 97.6 F Pulse Rate 123 H 99 H Respiratory Rate 24 24 Blood Pressure 129/99 H 125/72 Pulse Oximetry 95 93 Oxygen Flow Rate 3 3 Fraction of Inspired Oxygen 32 SaO2/FiO2 Ratio 184 Oxygen Delivery Method Nasal Cannula Oxygen Flow Rate 3 Narrative Exam Narrative: Physical Exam: GENERAL: The patient is not in any acute distressed. Awake and alert. HEENT: Nonicteric sclerae, PERRLA, EOMI. Oropharynx clear. Moist mucous membranes. Conjunctivae appear well perfused. HEART: Regular rate and rhythm without murmurs. 1+ lower extremities edema. LUNGS: Clear to auscultation bilaterally. No wheezing, crackles or rhonchi ABDOMEN: Soft, positive bowel sounds, nontender. SKIN: No rash, no excessive bruising, petechiae, or purpura. NEUROLOGIC: AxO x 3. Cranial nerves II-XII intact without motor/sensory deficit. Objective Labs 05/04/25 03:45 05/04/25 03:45 Labs: Laboratory Results - last 24 hr 05/03/25 05/03/25 05/03/25 13:50 16:29 18:29 WBC 15.2 H RBC 2.18 L Hgb 7.2 L Hct 20.7 L* MCV 95.2 MCH 33.2 MCHC 34.9 RDW 16.3 H Plt Count 396 Neut % (Auto) 81.9 H Lymph % (Auto) 11.2 L [place] % (Auto) 4.9 Eos % (Auto) 0.9 L Baso % (Auto) 1.1 Neut # (Auto) 50997 H Lymph # (Auto) 1700 [place] # (Auto) 700 Eos # (Auto) 100 Baso # (Auto) 200 H PT 13.5 H INR 1.2 Sodium 140 Potassium 4.2 Chloride 105 Carbon Dioxide 23 BUN 27 H Creatinine 0.83 Estimated GFR > 60 BUN/Creatinine Ratio 32.5 H Glucose 121 H Lactate 1.0 Calcium 9.3 Total Bilirubin 4.4 H AST 25 ALT 17 Alkaline Phosphatase 50 Troponin I 0.016 0.020 NT-Pro-B Natriuret Pep 1680 H Total Protein 7.0 Albumin 4.3 Globulin 2.7 Albumin/Globulin Ratio 1.6 Lipase 59 SARS-CoV-2 (PCR) Negative Influenza A (RT-PCR) Flu a negative Influenza B (RT-PCR) Flu b negative RSV (PCR) Negative Crossmatch See Detail 05/04/25 03:45 WBC 15.4 H RBC 2.20 L Hgb 7.3 L Hct 20.9 L* MCV 95.3 MCH 33.0 MCHC 34.7 RDW 16.3 H Plt Count 353 Neut % (Auto) 92.9 H Lymph % (Auto) 5.0 L [place] % (Auto) 1.3 L Eos % (Auto) 0.3 L Baso % (Auto) 0.5 Neut # (Auto) 46368 H Lymph # (Auto) 800 L [place] # (Auto) 200 Eos # (Auto) 0 Baso # (Auto) 100 PT INR Sodium 136 L Potassium 4.5 Chloride 102 Carbon Dioxide 22 BUN 29 H Creatinine 0.94 Estimated GFR > 60 BUN/Creatinine Ratio 30.9 H Glucose 175 H Lactate Calcium 8.6 Total Bilirubin AST ALT Alkaline Phosphatase Troponin I NT-Pro-B Natriuret Pep Total Protein Albumin Globulin Albumin/Globulin Ratio Lipase SARS-CoV-2 (PCR) Influenza A (RT-PCR) Influenza B (RT-PCR) RSV (PCR) Crossmatch Assessment & Plan Assessment & Plan narrative: Acute on chronic heart failure exacerbation. Admit the patient to medical telemetry. Strict I's and O's. Daily weight. Of note no clear type of heart failure as recent echo was not available. Will continue IV Lasix and monitor renal function and respiratory status. Consider obtaining echocardiogram in the morning if no recent echo is done in other system. COPD exacerbation. Continue Solu-Medrol and DuoNebs. No sign of pneumonia. Hold off antibiotics for now. Acute on chronic respiratory failure with hypoxemia. Of note baseline oxygen requirements 2 L and currently 4 L. Likely due to above. Treat as above and wean oxygen as able. CT angio shows no PE. Leukocytosis. Possibly be pneumonia. Will go ahead and empirically continue IV ceftriaxone. Incidental 6mm of L lung nodule. Follow up as outpatient with repeat CT in 6 month. Hypertension. Monitor blood pressure and resume home medication accordingly. Hyperlipidemia. Resume home statin. DVT prophylaxis Lovenox. CODE STATUS full code. Disposition likely home in 2 days. - As the provider of this telehealth evaluation, requested by the patient's evaluating physician, I attest that I introduced myself to the patient, provided my credentials and determined that telemedicine via a real-time, 2 way interactive audio and video platform is an appropriate and effective means of providing this service. - I reviewed the patient's chart and had a discussion with the member of the patient's treatment team. - The patient and I mutually agreed with continuation of this evaluation via telemedicine. The patient consented for the telemedicine evaluation. - This virtual encounter was taken place from [place] by Dr. Ramírez Cassidy. The patient was evaluated at [facility]. The encounter was approximately 35 minutes. The nurse was present during the entire time of the encounter and was able assists with the stethoscope to listen to the patients. Time-Based Coding :: [TOTAL MINUTES] spent with patient and on the chart (including review of chart, obtaining history, exam, reviewing outside data, placing orders, documenting exam and treatment plan, and counseling patient) on [DATE]. Quality VTE Deep Vein Thrombosis/Pulmonary Embolism Present on Admission: No
[2025-05-04 07:21] LABS: Anisocytosis 1+; Macrocytosis 1+; Microcytosis 1+; Polychromasia 1+
[2025-05-04] MEDS: SPIRONOLACTONE 25 MG TABLET PO (09:09)
[2025-05-04] MEDS: FERROUS SULFATE 325 MG TABLET PO (09:09)
[2025-05-04] MEDS: ATORVASTATIN 20 MG TABLET PO (09:10)
[2025-05-04] MEDS: BUDESONIDE 0.5 MG/2 ML NEB INH ×2 (09:11→19:28)
[2025-05-04] MEDS: ENOXAPARIN 40 MG/0.4 ML SYRINGE SUBCUT (09:11)
[2025-05-04] MEDS: ALBUTEROL/IPRATROPIUM 3 ML AMPUL INH ×2 (09:11→19:28)
[2025-05-04] MEDS: methylPREDNISolone succ 125 MG/2 ML VIAL 60 MG IV ×4 (09:15→23:43)
--- NOTE | 2025-05-04 09:26 | INF.NOTE ---
Pt a/Ox4, NAD, Oxygen at 3L, on tele monitor and pulse ox, ate breakfast, family at bedside, RT at bedside giving treatment, will continue to monitor.
--- NOTE | 2025-05-04 09:35 | CM.DANOTE ---
Initial DCP Assessment Note. Review EMR and PT Interview. Met with patient at bedside to discuss discharge needs.PT is alert x 4 sitting up in BED. No acute distress. Independent with DME. Lives with spouse. Normal oxygen usage 2L. 4L while walking. 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 Admitted INPT. Dx. CHF Exacerbation and Anemia. Plan: lasix and monitor H&H. Wean oxygen. Discharge Planning/Care Management CM Discharge Assessment Start: 05/03/25 20:22 Freq: Status: Active Protocol: Document 05/04/25 09:32 (Rec: 05/04/25 09:34 [id number]) Discharge Planning Assessment Assigned Discharge Magali Menchaca RN CM Nuclear Spectroscopist Provider Dr. Danielle Insurance Medicare Advance Directives? No History Provided By Patient,Family Member Has Patient been No admitted in last 30 days? Prior Living House Arrangements Household Members spouse Type of Relies on Others transporation used prior to admit Independent with ADL Yes 's Is patient alert and Yes oriented? Needs Assistance Home Chores / Shopping With Caregiver for No Another Community Services Oxygen Therapy used prior to admission: DME Already Rented / Wheelchair,FWW / Walker,Oxygen,Nebulizer Owned Comment Nika Care Barriers to No Discharge Discharge Plan Home Transportation spouse Arrangement Referrals Initiated None needed Review Status In Process Please Provide Date 05/04/25 Initial DC Assessment Was Performed Next Review Type Continued Stay Review
[2025-05-04 12:33] LABS: Reticulocyte Count, Percent 9.6 % (1.1-2.6)
--- NOTE | 2025-05-04 17:15 | P.PN_ITS ---
Subjective Subjective Interval history: 70-year-old female with COPD, chronic hypoxic respiratory failure on 2-3 liters/minute at baseline, hypertension, hyperlipidemia, possible CHF (previous echocardiogram in May of this year revealed mildly increased left ventricular thickness with normal size, normal wall motion, normal systolic function with EF of 60-65%, moderate mitral stenosis, moderate aortic stenosis) who was admitted with acute on chronic CHF exacerbation, COPD exacerbation, acute on chronic hypoxic respiratory failure, leukocytosis, and anemia. Patient reports she has a history of anemia. She states she was told she was anemia some months ago. She has seen by physician at [facility] in the past with regard to her anemia. She states she had difficulties with anemia back in November. She has noted some slight yellow tinge to her skin since February. On admission, there had been plans in place for transfusion. It was thought she would symptomatic anemia with a hemoglobin of 7.3. Exam Vital Signs (past 8 hours): - 05/04/25 09:34 05/04/25 12:00 05/04/25 16:00 Temperature 97.9 F 98.7 F Pulse Rate 109 H 101 H Respiratory Rate 18 16 Blood Pressure 118/50 L 152/52 H Pulse Oximetry 99 95 Oxygen Delivery Method Nasal Cannula Fraction of Inspired Oxygen 32 SaO2/FiO2 Ratio 296 Oxygen Delivery Method Nasal Cannula Oxygen Flow Rate 3 Narrative Exam Narrative: GEN: Pleasant middle-aged female, Alert and oriented x 3, NAD HEENT:NC, Face symmetric CHEST: Respiratory excursions symmetric, CTAB CV: RRR, no M/R/G ABD: Soft, NT/ND, BT present in all 4 quadrants, body habitus limits exam EXTR: warm, well perfused, no C/C/E SKIN: warm and dry, mild jaundice NEURO: Alert and oriented x 3, nonfocal Objective Labs 05/04/25 03:45 05/04/25 03:45 Labs: Laboratory Results - last 24 hr 05/03/25 05/03/25 05/04/25 16:29 18:29 03:45 WBC 15.4 H RBC 2.20 L Hgb 7.3 L Hct 20.9 L* MCV 95.3 MCH 33.0 MCHC 34.7 RDW 16.3 H Plt Count 353 Neut % (Auto) 92.9 H Lymph % (Auto) 5.0 L [place] % (Auto) 1.3 L Eos % (Auto) 0.3 L Baso % (Auto) 0.5 Neut # (Auto) 93625 H Lymph # (Auto) 800 L [place] # (Auto) 200 Eos # (Auto) 0 Baso # (Auto) 100 Platelet Estimate Adequate on smear RBC Morphology See below Polychromasia 1+ H Anisocytosis 1+ H Microcytosis 1+ H Macrocytosis 1+ H Percent Retic 9.6 H Sodium 136 L Potassium 4.5 Chloride 102 Carbon Dioxide 22 BUN 29 H Creatinine 0.94 Estimated GFR > 60 BUN/Creatinine Ratio 30.9 H Glucose 175 H Calcium 8.6 Lactate Dehydrogenase 297 H Troponin I 0.020 Blood Type A Negative Antibody Screen Negative Direct Antiglob Test Positive Crossmatch See Detail [facility] Medical History Chronic bronchitis Emphysema lung COPD (chronic obstructive pulmonary disease) Surgical History History of appendectomy H/O: hysterectomy Social History household members: spouse Smoking Status: Former smoker alcohol intake: current Assessment & Plan Assessment & Plan narrative: 1. Acute on chronic congestive heart failure with preserved ejection fraction Patient presented with shortness of breath, elevated BNP at 1680, chest x-ray showing cardiomegaly with minimal effusions and increased vascularity suggesting edema. Echocardiogram was performed yesterday which showed no significant change in findings, with ongoing mild concentric LVH, EF 65-70%, mild to moderately enlarged right ventricle with normal function, severely dilated left atrium, calcific mitral valve with moderate stenosis, moderate aortic stenosis. Remains on furosemide 40 mg IV q.6 hours. She is mildly hyponatremic at 136 and her BUN is increased to 29 today. Will decrease the furosemide to 40 mg q.8 today. 2. COPD exacerbation Continues Solu-Medrol, budesonide nebulizers, DuoNebs. 3. Acute on chronic respiratory failure with hypoxia Continues on supplemental oxygen. Currently on 3 liters/minute. 4. Anemia, concern for hemolysis Hemoglobin was 7.3. She does have a significant leak elevated RDW at 16.3%. Her bilirubin notably is elevated at 4. This does raise concern for hemolysis. I have sent a peripheral smear, LDH and haptoglobin. We will also send a CARRIE. Holding off on transfusion at this time. Will also get records from [place]. 5. Leukocytosis with possible underlying pneumonia White blood cell count is stable at 15.4. No evidence of pneumonia on imaging. Will defer antibiotics for now 6. Incidental left lung nodule, 6 mm Will need follow-up CT in 6 months 7. Hypertension Blood pressure fluctuates from normotensive to hypertensive. Continue spironolactone. 8. Hyperlipidemia Continue atorvastatin. Code status Full Prophylaxis On Lovenox Disposition Pending Time-Based Coding :: [TOTAL MINUTES] spent with patient and on the chart (including review of chart, obtaining history, exam, reviewing outside data, placing orders, documenting exam and treatment plan, and counseling patient) on [DATE]. Quality VTE Deep Vein Thrombosis/Pulmonary Embolism Present on Admission: No
[2025-05-05] VITALS (9 sets, daily range): BP systolic 105–164; BP diastolic 50–76; PULSE 72–109; RESP 14–20; TEMP 35.8–37.1; O2SAT 94–100
[2025-05-05] MEDS: FUROSEMIDE 40 MG/4 ML VIAL IV (02:13)
[2025-05-05 06:11] LABS: Add Manual Diff / Slide Review NO; Hemoglobin 7.0 g/dL (12.0-16.0); Lymphocytes Absolute Auto 800 /uL (1100-4500); Mean Corpuscular HGB Conc 35.4 % (30-36); Mean Corpuscular Hemoglobin 34.0 PG (26-34); Mean Corpuscular Volume 96.0 fL (80-100); Platelet Count 374 X10^3/uL (150-400)
[2025-05-05 06:12] LABS: Hematocrit 19.7 % (36-46)
[2025-05-05 06:16] LABS: Alanine Aminotransferase 21 IU/L (<35); Albumin 4.1 g/dL (3.5-5.0); Albumin Globulin Ratio 1.6 (1.0-2.8); Alkaline Phosphatase 50 U/L (38-126); Blood Urea Nitrogen 44 mg/dL (7-17); Calcium 8.4 mg/dL (8.4-10.2); Carbon Dioxide 25 mmol/L (22-32); Chloride 99 mmol/L (98-107); Estimated Glomerular Filt Rate 47 mL/min (>60); Globulin 2.5 g/dL (1.7-4.1); Glucose 180 mg/dL (70-99); HEMOLYSIS < 15 (0-50); Potassium 4.0 mmol/L (3.4-5.1); Sodium 135 mmol/L (137-145); Total Protein 6.6 g/dL (6.3-8.2)
--- NOTE | 2025-05-05 07:12 | P.PN_ITS ---
Subjective Subjective Interval history: 70-year-old female with COPD, chronic hypoxic respiratory failure on 2-3 liters/minute at baseline, hypertension, hyperlipidemia, possible CHF (previous echocardiogram in May of this year revealed mildly increased left ventricular thickness with normal size, normal wall motion, normal systolic function with EF of 60-65%, moderate mitral stenosis, moderate aortic stenosis) who was admitted with acute on chronic CHF exacerbation, COPD exacerbation, acute on chronic hypoxic respiratory failure, leukocytosis, and anemia. Hx: Patient reports she has a history of anemia. She states she was told she was anemia some months ago. She has seen by physician at [facility] in the past with regard to her anemia. She states she had difficulties with anemia back in November. She has noted some slight yellow tinge to her skin since February. On admission, there had been plans in place for transfusion. It was thought she had symptomatic anemia with a hemoglobin of 7.3. Exam Vital Signs (past 8 hours): - 05/05/25 00:00 05/05/25 04:00 Temperature 98.7 F 96.5 F L Pulse Rate 93 H Respiratory Rate 16 16 Blood Pressure 116/50 L 105/60 Pulse Oximetry 96 96 Oxygen Flow Rate 3 3 Fraction of Inspired Oxygen 28 SaO2/FiO2 Ratio 335 Oxygen Delivery Method Nasal Cannula Oxygen Flow Rate 3 Narrative Exam Narrative: GEN: Pleasant middle-aged female, Alert and oriented x 3, NAD HEENT:NC, Face symmetric CHEST: Respiratory excursions symmetric, CTAB CV: RRR, no M/R/G ABD: Soft, NT/ND, BT present in all 4 quadrants, body habitus limits exam EXTR: warm, well perfused, no C/C/E SKIN: warm and dry, a very mild jaundice noted yesterday is resolved today NEURO: Alert and oriented x 3, nonfocal Objective Labs 05/05/25 04:36 05/05/25 04:36 Labs: Laboratory Results - last 24 hr 05/03/25 05/04/25 05/05/25 18:29 03:45 04:36 WBC 14.1 H RBC 2.05 L Hgb 7.0 L Hct 19.7 L* MCV 96.0 MCH 34.0 MCHC 35.4 RDW 16.5 H Plt Count 374 Neut % (Auto) 92.3 H Lymph % (Auto) 5.6 L [place] % (Auto) 2.0 L Eos % (Auto) 0.0 L Baso % (Auto) 0.1 Neut # (Auto) 42070 H Lymph # (Auto) 800 L [place] # (Auto) 300 Eos # (Auto) 0 Baso # (Auto) 0 Platelet Estimate Adequate on smear RBC Morphology See below Polychromasia 1+ H Anisocytosis 1+ H Microcytosis 1+ H Macrocytosis 1+ H Percent Retic 9.6 H Sodium 135 L Potassium 4.0 Chloride 99 Carbon Dioxide 25 BUN 44 H Creatinine 1.24 H Estimated GFR 47 L BUN/Creatinine Ratio 35.5 H Glucose 180 H Calcium 8.4 Total Bilirubin 2.2 H AST 17 ALT 21 Alkaline Phosphatase 50 Total Protein 6.6 Albumin 4.1 Globulin 2.5 Albumin/Globulin Ratio 1.6 Blood Type A Negative Antibody Screen Negative Direct Antiglob Test Positive Crossmatch See Detail [facility] Medical History Chronic bronchitis Emphysema lung COPD (chronic obstructive pulmonary disease) Surgical History History of appendectomy H/O: hysterectomy Social History household members: spouse Smoking Status: Former smoker alcohol intake: current Assessment & Plan Assessment & Plan narrative: 1. Acute on chronic congestive heart failure with preserved ejection fraction Patient presented with shortness of breath, elevated BNP at 1680, chest x-ray showing cardiomegaly with minimal effusions and increased vascularity suggesting edema. Echocardiogram was performed on May 03 which showed no significant change in findings, with ongoing mild concentric LVH, EF 65-70%, mild to moderately enlarged right ventricle with normal function, severely dilated left atrium, calcific mitral valve with moderate stenosis, moderate aortic stenosis. Furosemide was decreased from 40 mg q.6 to 40 mg Q 8 yesterday. Her hyponatremia is mildly worse at 135 today, down from 136. BUN is increased from 29-44 and creatinine is up. We will discontinue diuresis today. 2. COPD exacerbation Continues Solu-Medrol, budesonide nebulizers, DuoNebs. 3. Acute on chronic respiratory failure with hypoxia Continues on supplemental oxygen. She typically uses 2 L of oxygen at rest and 4 L with activity. Prior to admission she had titrated to 3 L at rest 5 with activity. Currently on 3 liters/minute. Will wean back down to 2 L as tolerated. 4. Anemia, concern for hemolysis Hemoglobin was 7.3 yesterday, and is down to 7.0 today. She does have polychromasia, anisocytosis, and a high reticulocyte count at 9.6%. These are all consistent with hemolysis. Haptoglobin is a send out and is pending. LDH was elevated. Her trudy antibody was positive. Although this can have a false positive, we do not have additional confirmatory testing available here. I did send cold agglutinin testing today. Her bilirubin is improved today and is down from 4.4-2.0. I will hold off on transfusion given risk for further hemolysis. Certainly the improvement in her bilirubin could be evidence of response to the steroids she is receiving for her COPD. Await records from [facility] -we did receive some records, it appears she had some basic hemolysis labs, but I did not get the specific labs that were drawn and sent on March 15 for confirmation.. We will repeat CBC tomorrow. 5. Leukocytosis with possible underlying pneumonia White blood cell count is mildly improved down to 14.1 today. Certainly, this could be secondary to steroid effect. As noted, there was no evidence of pneumonia on imaging. 6. Incidental left lung nodule, 6 mm Will need follow-up CT in 6 months 7. Hypertension Blood pressure fluctuates from normotensive to hypertensive. Continue spironolactone. 8. Hyperlipidemia Continue atorvastatin. Code status Full Prophylaxis On Lovenox Disposition Of note, she does have an appointment with her squeak rattle and leak repairer at [facility] on May 07. As long as her breathing is improved tomorrow, I would strongly recommend discharging tomorrow. If she requires transfusion for hemoglobin less than 7, the blood will need to be warmed in order to prevent hemolysis (please see notes from the lab in regard to her type and cross). If her hemoglobin is stable tomorrow and 7.0 or higher, I would avoid transfusion if possible. Time-Based Coding :: [TOTAL MINUTES] spent with patient and on the chart (including review of chart, obtaining history, exam, reviewing outside data, placing orders, documenting exam and treatment plan, and counseling patient) on [DATE]. Quality VTE Deep Vein Thrombosis/Pulmonary Embolism Present on Admission: No
[2025-05-05] MEDS: BUDESONIDE 0.5 MG/2 ML NEB INH ×2 (08:36→19:22)
[2025-05-05] MEDS: ALBUTEROL/IPRATROPIUM 3 ML AMPUL INH ×2 (08:36→19:22)
[2025-05-05] MEDS: SPIRONOLACTONE 25 MG TABLET PO (09:20)
[2025-05-05] MEDS: FERROUS SULFATE 325 MG TABLET PO (09:20)
[2025-05-05] MEDS: ATORVASTATIN 20 MG TABLET PO (09:20)
[2025-05-05] MEDS: methylPREDNISolone succ 125 MG/2 ML VIAL 60 MG IV ×3 (09:21→20:28)
[2025-05-06] MEDS: methylPREDNISolone succ 125 MG/2 ML VIAL 60 MG IV ×2 (03:00→08:05)
[2025-05-06 04:46] VITALS: BP 153/89; PULSE 100; RESP 17; TEMP 35.9; O2SAT 92
[2025-05-06 05:45] LABS: Add Manual Diff / Slide Review NO; Hematocrit 22.4 % (36-46); Hemoglobin 7.8 g/dL (12.0-16.0); Lymphocytes Absolute Auto 1200 /uL (1100-4500); Mean Corpuscular HGB Conc 34.6 % (30-36); Mean Corpuscular Hemoglobin 33.0 PG (26-34); Mean Corpuscular Volume 95.4 fL (80-100); Platelet Count 439 X10^3/uL (150-400)
[2025-05-06 05:59] LABS: Alanine Aminotransferase 34 IU/L (<35); Albumin 4.5 g/dL (3.5-5.0); Albumin Globulin Ratio 1.8 (1.0-2.8); Alkaline Phosphatase 52 U/L (38-126); Blood Urea Nitrogen 54 mg/dL (7-17); Calcium 8.8 mg/dL (8.4-10.2); Carbon Dioxide 24 mmol/L (22-32); Chloride 100 mmol/L (98-107); Estimated Glomerular Filt Rate 52 mL/min (>60); Globulin 2.5 g/dL (1.7-4.1); Glucose 183 mg/dL (70-99); HEMOLYSIS < 15 (0-50); Potassium 4.3 mmol/L (3.4-5.1); Sodium 135 mmol/L (137-145); Total Protein 7.0 g/dL (6.3-8.2)
[2025-05-06 06:22] LABS: Appearance Urine UA CLEAR; Bilirubin Urine UA NEGATIVE (NEGATIVE); Color Urine UA YELLOW; Glucose Urine UA NEGATIVE (Negative); Ketones Urine UA NEGATIVE (NEGATIVE); Leukocyte Esterase Urine UA NEGATIVE (NEGATIVE); Nitrite Urine UA NEGATIVE (Negative); Occult Blood Urine UA NEGATIVE (Negative); Protein Urine UA NEGATIVE (Negative); Specific Gravity Urine UA 1.010 (1.000-1.035); Urobilinogen Urine UA 0.2 E.U./dL (0.2)
[2025-05-06 06:28] LABS: pH Urine UA 5.5 (4.5-8.0)
[2025-05-06 06:37] LABS: Culture Indicated Urine Specimen Cultured
--- NOTE | 2025-05-06 07:46 | PM.PN.1 ---
Subjective Subjective Interval history: Interval history: 70-year-old female with COPD, chronic hypoxic respiratory failure on 2-3 liters/minute at baseline, hypertension, hyperlipidemia, possible CHF (previous echocardiogram in May of this year revealed mildly increased left ventricular thickness with normal size, normal wall motion, normal systolic function with EF of 60-65%, moderate mitral stenosis, moderate aortic stenosis) who was admitted with acute on chronic CHF exacerbation, COPD exacerbation, acute on chronic hypoxic respiratory failure, leukocytosis, and anemia. Hx: Patient reports she has a history of anemia. She states she was told she was anemia some months ago. She has seen by physician at [facility] in the past with regard to her anemia. She states she had difficulties with anemia back in November. She has noted some slight yellow tinge to her skin since February. On admission, there had been plans in place for transfusion. It was thought she had symptomatic anemia with a hemoglobin of 7.3. S: O: NAD, alert and oriented. Fluent speech. Lungs are clear, normal rate and effort. Heart is regular, no murmur gallop or rub. Abdomen is soft, non distended. Extremities are free of edema. IMAGING: Chest/Abdomen/Pelvis: No areas of hemodynamically significant stenosis, vascular occlusion, aneurysmal dilation or dissection. Cholelithiasis without appearance of cholecystitis. New 6 mm left lower lobe nodule partially ground-glass in appearance. Six-month interval CT follow-up is recommended. CXR: Cardiomegaly with minimal effusions and increased vascularity suggestive of edema. ECHO: 1) Mildly increased left ventricular thickness (concentric) with normal size, and normal systolic function (EF 65-70%). 2) Mildly to moderately enlarged right ventricle with normal function. 3) The left atrium is severely dilated. 4) Calcific mitral valve with moderate stenosis (mean infolow gradient 10.3 mmHg with HR around 110bpm). 5) There is moderate aortic stenosis (valve area 1.2cm2, mean gradient 29mmHg, severity ratio 0.40). 6) Compared to the Echo done 05/28/2024, no significant change. A/P: 1. Acute on chronic congestive heart failure with preserved ejection fraction Patient presented with shortness of breath, elevated BNP at 1680, chest x-ray showing cardiomegaly with minimal effusions and increased vascularity suggesting edema. Echocardiogram was performed on May 03 which showed no significant change in findings, with ongoing mild concentric LVH, EF 65-70%, mild to moderately enlarged right ventricle with normal function, severely dilated left atrium, calcific mitral valve with moderate stenosis, moderate aortic stenosis. Furosemide was decreased from 40 mg q.6 to 40 mg Q 8 yesterday. Her hyponatremia is mildly worse at 135 today, down from 136. BUN is increased from 29-44 and creatinine is up. We will discontinue diuresis today. 2. COPD exacerbation Continues Solu-Medrol, budesonide nebulizers, DuoNebs. 3. Acute on chronic respiratory failure with hypoxia Continues on supplemental oxygen. She typically uses 2 L of oxygen at rest and 4 L with activity. Prior to admission she had titrated to 3 L at rest 5 with activity. Currently on 3 liters/minute. Will wean back down to 2 L as tolerated. 4. Anemia, concern for hemolysis Hemoglobin was 7.3 yesterday, and is down to 7.0 today. She does have polychromasia, anisocytosis, and a high reticulocyte count at 9.6%. These are all consistent with hemolysis. Haptoglobin is a send out and is pending. LDH was elevated. Her trudy antibody was positive. Although this can have a false positive, we do not have additional confirmatory testing available here. I did send cold agglutinin testing today. Her bilirubin is improved today and is down from 4.4-2.0. I will hold off on transfusion given risk for further hemolysis. Certainly the improvement in her bilirubin could be evidence of response to the steroids she is receiving for her COPD. Await records from [facility] -we did receive some records, it appears she had some basic hemolysis labs, but I did not get the specific labs that were drawn and sent on March 15 for confirmation.. We will repeat CBC tomorrow. 5. Leukocytosis with possible underlying pneumonia White blood cell count is mildly improved down to 14.1 today. Certainly, this could be secondary to steroid effect. As noted, there was no evidence of pneumonia on imaging. 6. Incidental left lung nodule, 6 mm Will need follow-up CT in 6 months 7. Hypertension Blood pressure fluctuates from normotensive to hypertensive. Continue spironolactone. 8. Hyperlipidemia Continue atorvastatin. Code status Full Prophylaxis On Lovenox Disposition Of note, she does have an appointment with her regional refrigerated cdl truck driver at [facility] on May 07. As long as her breathing is improved tomorrow, I would strongly recommend discharging tomorrow. If she requires transfusion for hemoglobin less than 7, the blood will need to be warmed in order to prevent hemolysis (please see notes from the lab in regard to her type and cross). If her hemoglobin is stable tomorrow and 7.0 or higher, I would avoid transfusion if possible. Exam Vital Signs (past 8 hours): - 05/06/25 04:46 Temperature 96.7 F L Pulse Rate 100 H Respiratory Rate 17 Blood Pressure 153/89 H Pulse Oximetry 92 Oxygen Flow Rate 2 Fraction of Inspired Oxygen 32 SaO2/FiO2 Ratio 300 Oxygen Delivery Method Nasal Cannula Oxygen Flow Rate 2 Objective Labs 05/06/25 05:32 05/06/25 05:32 Labs: Laboratory Results - last 24 hr 05/04/25 05/06/25 05/06/25 03:45 04:54 05:32 WBC 17.8 H RBC 2.35 L Hgb 7.8 L Hct 22.4 L MCV 95.4 MCH 33.0 MCHC 34.6 RDW 16.5 H Plt Count 439 H Neut % (Auto) 88.3 H Lymph % (Auto) 6.8 L [place] % (Auto) 4.4 Eos % (Auto) 0.0 L Baso % (Auto) 0.5 Neut # (Auto) 52302 H Lymph # (Auto) 1200 [place] # (Auto) 800 Eos # (Auto) 0 Baso # (Auto) 100 Haptoglobin 16 L Sodium 135 L Potassium 4.3 Chloride 100 Carbon Dioxide 24 BUN 54 H Creatinine 1.14 H Estimated GFR 52 L BUN/Creatinine Ratio 47.4 H Glucose 183 H Calcium 8.8 Total Bilirubin 2.0 H AST 26 ALT 34 Alkaline Phosphatase 52 Total Protein 7.0 Albumin 4.5 Globulin 2.5 Albumin/Globulin Ratio 1.8 Urine Color Yellow Urine Appearance Clear Urine pH 5.5 Ur Specific [place] 1.010 Urine Protein Negative Urine Glucose (UA) Negative Urine Ketones Negative Urine Occult Blood Negative Urine Nitrate Negative Urine Bilirubin Negative Urine Urobilinogen 0.2 Ur Leukocyte Esterase Negative Urine RBC None seen Urine WBC None seen Ur Squamous Epith Cells 1-5 /hpf Urine Bacteria None seen Urine Yeast 30-100/hpf H Ur Culture Indicated? Specimen cultured Vol Urine Centrifuged 10ml (spun) [facility] Medical History Chronic bronchitis Emphysema lung COPD (chronic obstructive pulmonary disease) Surgical History History of appendectomy H/O: hysterectomy Social History household members: spouse Smoking Status: Former smoker alcohol intake: current Assessment & Plan Time-Based Coding :: [TOTAL MINUTES] spent with patient and on the chart (including review of chart, obtaining history, exam, reviewing outside data, placing orders, documenting exam and treatment plan, and counseling patient) on [DATE]. Quality VTE Deep Vein Thrombosis/Pulmonary Embolism Present on Admission: No
[2025-05-06 08:00] VITALS: BP 145/63; PULSE 101; RESP 20; TEMP 36.7; O2SAT 93
[2025-05-06] MEDS: SPIRONOLACTONE 25 MG TABLET PO (08:05)
[2025-05-06] MEDS: FERROUS SULFATE 325 MG TABLET PO (08:05)
[2025-05-06] MEDS: ATORVASTATIN 20 MG TABLET PO (08:05)
[2025-05-06] MEDS: BUDESONIDE 0.5 MG/2 ML NEB INH (08:55)
[2025-05-06] MEDS: ALBUTEROL/IPRATROPIUM 3 ML AMPUL INH (08:55)
[2025-05-06 08:56] VITALS: PULSE 103; RESP 16; O2SAT 99
[2025-05-06 12:00] VITALS: BP 145/78; PULSE 112; RESP 16; TEMP 36.9; O2SAT 91
--- NOTE | 2025-05-06 12:05 | PM.DS.1 ---
History of Present Illness History of Present Illness Chief complaint: O2 levels are low 84, SOB (COPD) 2 days Narrative: From H&P: 70 year-old female with a past medical history of COPD on 2-3 L oxygen at baseline, hypertension, hyperlipidemia and possible CHF presents with complaint of shortness of breath. Per patient's report, the patient started having creased shortness of breath and a dry cough that started 2 days ago. The patient however denies any fever, chills, nausea, vomiting, diarrhea or chest pain. The patient states that the cough is dry. The patient admits to have some mild ankle edema bilaterally. In the emergency room, the patient was more dynamically stable but was requiring 4 L oxygen per nasal cannula. Labs shows a WBC of 15 hemoglobin of 7.2 normal lactic acid. Troponin was 0.0 1 repeat 0 was 0.02. BNP was 1680. Chest x-ray shows minimal effusion with increased vascular congestion. CT chest with angiography shows no PE does suggest 6 mm left lower lobe nodule that needs follow-up as outpatient with repeat CT scan. Patient was given IV Lasix, Solu-Medrol, DuoNebs as well as 1 unit of blood transfusion. Emperic IV Ceftriaxone also given for possible pneumonia. IMAGING: Chest abdomen and pelvis CTA: No areas of hemodynamically significant stenosis, vascular occlusion, aneurysmal dilation or dissection. Cholelithiasis without appearance of cholecystitis. New 6 mm left lower lobe nodule partially ground-glass in appearance. Six-month interval CT follow-up is recommended. Chest x-ray: Cardiomegaly with minimal effusions and increased vascularity suggestive of edema. Echo: 1) Mildly increased left ventricular thickness (concentric) with normal size, and normal systolic function (EF 65-70%). 2) Mildly to moderately enlarged right ventricle with normal function. 3) The left atrium is severely dilated. 4) Calcific mitral valve with moderate stenosis (mean infolow gradient 10.3 mmHg with HR around 110bpm). 5) There is moderate aortic stenosis (valve area 1.2cm2, mean gradient 29mmHg, severity ratio 0.40). 6) Compared to the Echo done 05/28/2024, no significant change. Hospital course: She was diuresed for possible volume overload and continued on supplemental oxygen. She was use this at home. Her initial hemoglobin was 7.3. Peripheral smear, LDH and haptoglobin were sent. The patient had a mild leukocytosis and no fevers. In the day of discharge her hemoglobin was up and she voiced support for going home so that she could make it to her Oncology Hematology appointment at [facility] on May 07. Hemoglobin was 7.8 that the time of discharge, platelets 439. WBC 17.8 with some evidence of leukocytosis. Her smear was notable for haptoglobin of 16, reticulocyte percentage of 9.6 which is dramatically elevated. In addition bilirubin is 2.0 and LDH was 297 somewhat supportive of a hemolytic process. DISCHARGE EXAM: NAD, alert and oriented. Fluent speech. Lungs are clear, normal rate and effort. Heart is regular, no murmur gallop or rub. Abdomen is soft, non distended. Extremities are free of edema. 1. Acute on chronic congestive heart failure with preserved ejection fraction, improved. 2. COPD exacerbation, improved. 3. Acute on chronic respiratory failure with hypoxia, improved. 4. Anemia, concern for hemolysis, improved. 5. Leukocytosis, stable. 6. Incidental left lung nodule, 6 mm, new. Will need follow-up CT in 6 months 7. Hypertension, stable. 8. Hyperlipidemia, stable. PLAN: Discharge with no change to medications. She will be seen at Hematology as scheduled tomorrow at [facility]. Is a high suspicion for hemolytic process and she also has evidence of leukocytosis and thrombocytosis on her CBC. Discharge Providers Provider Date of admission: 05/03/25 20:13 Discharge Date: 05/06/25 Primary care physician: Nika Danielle MD Discharge provider: Jordan Dolan MD Summary Status at Discharge Cognitive/behavioral status at discharge: oriented Functional status at discharge: uses cane/walker Overall status at discharge: patient is back to baseline Time Spent with Patient Time spent: Greater than 30 minutes Exam Vital Signs (past 8 hours): - 05/06/25 04:46 05/06/25 08:00 05/06/25 08:56 Temperature 96.7 F L 98.1 F Pulse Rate 100 H 101 H 103 H Respiratory Rate 17 20 16 Blood Pressure 153/89 H 145/63 H Pulse Oximetry 92 93 99 Oxygen Flow Rate 2 2 2 Fraction of Inspired Oxygen 28 Fraction of Inspired Oxygen 28 SaO2/FiO2 Ratio 332 Oxygen Delivery Method Nasal Cannula Oxygen Flow Rate 2 Objective Labs 05/06/25 05:32 05/06/25 05:32 Labs: Laboratory Results - last 24 hr 05/06/25 05/06/25 04:54 05:32 WBC 17.8 H RBC 2.35 L Hgb 7.8 L Hct 22.4 L MCV 95.4 MCH 33.0 MCHC 34.6 RDW 16.5 H Plt Count 439 H Neut % (Auto) 88.3 H Lymph % (Auto) 6.8 L [place] % (Auto) 4.4 Eos % (Auto) 0.0 L Baso % (Auto) 0.5 Neut # (Auto) 67709 H Lymph # (Auto) 1200 [place] # (Auto) 800 Eos # (Auto) 0 Baso # (Auto) 100 Sodium 135 L Potassium 4.3 Chloride 100 Carbon Dioxide 24 BUN 54 H Creatinine 1.14 H Estimated GFR 52 L BUN/Creatinine Ratio 47.4 H Glucose 183 H Calcium 8.8 Total Bilirubin 2.0 H AST 26 ALT 34 Alkaline Phosphatase 52 Total Protein 7.0 Albumin 4.5 Globulin 2.5 Albumin/Globulin Ratio 1.8 Urine Color Yellow Urine Appearance Clear Urine pH 5.5 Ur Specific [place] 1.010 Urine Protein Negative Urine Glucose (UA) Negative Urine Ketones Negative Urine Occult Blood Negative Urine Nitrate Negative Urine Bilirubin Negative Urine Urobilinogen 0.2 Ur Leukocyte Esterase Negative Urine RBC None seen Urine WBC None seen Ur Squamous Epith Cells 1-5 /hpf Urine Bacteria None seen Urine Yeast 30-100/hpf H Ur Culture Indicated? Specimen cultured Vol Urine Centrifuged 10ml (spun) [facility] Medical History Chronic bronchitis Emphysema lung COPD (chronic obstructive pulmonary disease) Surgical History History of appendectomy H/O: hysterectomy Social History household members: spouse Smoking Status: Former smoker alcohol intake: current Discharge Plan Discharge Plan Patient Disposition: Home Provider Discharge Comment: Stable for discharge home. Discharge orders & Medications Prescriptions: Continued fluticasone propion-salmeterol 250-50 mcg/dose blister with device 2 inh inhalation QID spironolactone 25 mg tablet 25 mg PO DAILY ferrous sulfate 325 mg (65 mg iron) tablet 325 mg PO DAILY albuterol sulfate 90 mcg/actuation HFA aerosol inhaler 2 puff inhalation Q6H PRN (Reason: shortness of breath or wheezing) losartan 100 mg tablet 100 mg PO DAILY Jardiance 10 mg tablet 10 mg PO DAILY rosuvastatin [Crestor] 10 mg tablet 10 mg PO DAILY tiotropium bromide 18 mcg capsule, w/inhalation device 1 cap INHALATION DAILY Qty: 60 0RF Rx Instructions: puncture 1 cap using device; one dose = 2 inhalations Medication counseling provided by Pharmacist: No Follow up/Referrals: Nika Danielle MD [Primary Care Provider, Family Practice] Diet/Activity/Treatments Diet: Regular Skin/Wound/Dressing Care Report to your healthcare provider any signs of infection, such as:: chills, fever and night sweats Visit Report/Discharge Packet Instructions: DI for Heart Failure, DI for Iron Deficiency Anemia-Adult Stand Alone Forms: Patient Portal/API Discharge Data Primary Care Provider: Nika Danielle Quality VTE Deep Vein Thrombosis/Pulmonary Embolism Present on Admission: No
--- NOTE | 2025-05-06 13:10 | CM.DPNOTE ---
DCP note JOURNALIST reviewed EMR per provider, cleared to dc home today per previous CM notes, no identified DCP needs at this time. P: dc home today with likely OP f/u. will continue to follow closely in case any DCP needs arise STANISLAW Young
== END 2025-05-06 13:26 | disposition home or self-care (01) | DRG 291 ==
LOC: ED 16:53 → AC 20:14
PROVIDERS: Emergency Medicine; Family Medicine; Admitting Provider Internal Medicine; Emergency Provider Emergency Medicine; PCP Family Medicine; Referring Provider Emergency Medicine; Visit Provider Internal Medicine
DX: I11.0 Hypertensive heart disease with heart failure (principal); I50.33 Acute on chronic diastolic (congestive) heart failure; J96.21 Acute and chronic respiratory failure with hypoxia; J44.1 Chronic obstructive pulmonary disease with (acute) exacerbation; R91.1 Solitary pulmonary nodule; E78.5 Hyperlipidemia, unspecified; I35.0 Nonrheumatic aortic (valve) stenosis; D64.9 Anemia, unspecified; D72.829 Elevated white blood cell count, unspecified; I35.2 Nonrheumatic aortic (valve) stenosis with insufficiency; Z99.81 Dependence on supplemental oxygen; Z87.891 Personal history of nicotine dependence
CPT/HCPCS: 36415; 71045; 71275; 74174; 80048; 80053; 81001; 83010; 83605; 83615; 83690; 83880; 84484; 85025; 85045; 85610; 86157; 86850; 86870; 86880; 86900; 86901; 86902; 87077; 87086; 87637; 93005; 93010; 93306; 94640; 96365; 96375; 96376; 99285; J0696; J1650; J1938; J2405; J2919; J7050; Q9967